=== PATIENT | male | born 1940 | race Caucasian/White ===

== ENCOUNTER → 2017-10-08 11:41 | Outpatient (CLI) | payer MEDICARE, SELFPAY ==
--- NOTE | 2017-10-08 | DI.CT.S_ITS ---
PROCEDURE: CT ABDOMEN WO/W CON INDICATIONS: 77-year-old male with posterior right hepatic lobe 1.6 cm lesion on recent abdominal ultrasound. History of thyroid and prostate carcinomas. TECHNIQUE: 4 phase scanning was performed. Non-contrast 5 mm axial sections acquired from the diaphragm to the iliac crests. Following the administration of intravenous contrast, 5 mm thick arterial-phase, portal venous-phase, and 5-minute delayed phase images were acquired through the liver. 5 mm thick coronal and sagittal reformats were performed. For radiation dose reduction, the following was used: automated exposure control, adjustment of mA and/or kV according to patient size. COMPARISON: [facility], US, ABDOMEN COMPLETE, 08/18/2017, 12:19. [facility], CT, CT CHEST WITH CONTRAST, 06/30/2017, 10:08. [facility], CT, CT NECK CHEST W CON, 10/17/2015, 12:54. [facility], CT, CT NECK CHEST W CON, 05/28/2015, 14:05. [facility], CT, ABDOMEN/PELVIS WITH CONTRAST, 10/06/2011, 18:19. [facility], CT, ABDOMEN/PELVIS WITH CONTRAST, 09/02/2008, 23:33. FINDINGS: Image quality: Excellent. Lung bases: Multiple variably sized bibasilar lung metastases are not significantly changed, measuring up to 1.1 cm in the posterolateral right lung base. Heart size is normal. Liver: Liver is normal in overall size. Precontrast images demonstrate no fatty infiltration. Lobulated 1.8 cm hypoenhancing lesion in the posterior right hepatic dome is again noted, demonstrating internal septations, and significantly increased in size from 8 mm on May 28, 2015 scan. No additional suspicious hepatic lesions identified. Other solid organs: Gallbladder is surgically absent. Biliary system is non dilated. Pancreas is normal in morphology. Spleen is normal in size and enhancement. No adrenal nodules. Diffuse bilateral adrenal thickening is unchanged, consistent with hyperplasia. Both kidneys demonstrate normal size and enhancement, without hydronephrosis or nephrolithiasis. Nodes and vessels: No retroperitoneal or mesenteric adenopathy by size criteria. Aorta and inferior vena cava are normal in size, with aortoiliac atherosclerosis. Bowel and peritoneum: Unenhanced bowel loops are normal in caliber. No free fluid or air. Bones: No suspicious bony lesions. No vertebral body compression fractures. There is grade one L4-L5 spondylolisthesis from facet joint degeneration. Miscellaneous: No ventral hernias. There is persistent asymmetric right hemidiaphragm elevation. IMPRESSION: 1. 1.8 cm hypovascular lesion in segment 7 of the posterior right hepatic dome corresponds with ultrasound finding, and has significantly enlarged since May 2015, consistent with metastasis. 2. Multiple pulmonary metastases are not significantly changed since June 2017. 3. Bilateral diffuse adrenal thickening as before, consistent with hyperplasia. Dictated by: Jose Daniel Bourgeois M.D. on 10/08/2017 at 12:36 Approved by: Jose Daniel Bourgeois M.D. on 10/08/2017 at 12:56
== END ==
PROVIDERS: Family Provider Family Medicine; PCP Family Medicine; Visit Provider Family Medicine
DX: K76.9 Liver disease, unspecified (principal); C78.00 Secondary malignant neoplasm of unspecified lung; Z85.850 Personal history of malignant neoplasm of thyroid; Z85.46 Personal history of malignant neoplasm of prostate
CPT/HCPCS: 74170; Q9967

== ENCOUNTER → 2017-11-09 12:41 | Outpatient (CLI) | payer MEDICARE, SELFPAY ==
--- NOTE | 2017-11-09 | DI.RAD.S_ITS ---
PROCEDURE: XR CHEST 2V INDICATIONS: ACUTE BRONCHITIS TECHNIQUE: 2 views of the chest were acquired. COMPARISON: [facility], CT, CT ABDOMEN WO/W CON, 10/08/2017, 11:45. [facility], CR, CHEST 1 VIEW, 09/05/2008, 10:43. [facility], CR, CHEST 1 VIEW, 09/04/2008, 16:23. [facility], CR, CHEST 1 VIEW, 09/02/2008, 23:15. FINDINGS: Surgical changes and devices: None. Lungs and pleura: No pleural effusions or pneumothorax. Lungs are again seen to be significantly abnormal containing multiple pulmonary nodules bilaterally, when compared to the scanogram from the prior recent CT scanning 10/08/17. The largest pulmonary nodule found and is located at the perihilar right lung, measuring approximately 2.8 cm oblique craniocaudad and 2.3 cm transverse. Mediastinum: Mediastinal contours are normal. Heart size is normal. Bones and chest wall: No suspicious bony abnormalities. Soft tissues appear unremarkable. IMPRESSION: Bilateral pulmonary nodules as discussed little if any changed from the comparison CT scan from 10/08/17. The findings are consistent with metastatic disease, appreciably worsened from 2008. Dictated by: Preston Tate M.D. on 11/09/2017 at 13:20 Approved by: Preston aTte M.D. on 11/09/2017 at 13:42
== END ==
PROVIDERS: Family Provider Family Medicine; PCP Family Medicine; Visit Provider Family Medicine
DX: J20.9 Acute bronchitis, unspecified (principal); R91.8 Other nonspecific abnormal finding of lung field
CPT/HCPCS: 71046

== ENCOUNTER → 2019-11-28 12:20 | Outpatient (CLI) | payer MEDICARE, SELFPAY ==
--- NOTE | 2019-11-28 | DI.RAD.S_ITS ---
PROCEDURE: XR CHEST 2V INDICATIONS: WHEEZING, shortness of breath TECHNIQUE: 2 views of the chest were acquired. COMPARISON: [facility], CT, CT CHEST WITH CONTRAST, 01/25/2019, 16:32. [facility], CR, XR CHEST 2V, 11/09/2017, 12:27. [facility], CR, CHEST 1 VIEW, 09/05/2008, 10:43. FINDINGS: Surgical changes and devices: None. Lungs and pleura: Lungs are abnormal with multiple lung masses present, bilaterally, and best seen on the right in apparent Tamara hilar distribution. Left-sided lung base and lateral lung nodules are present that appear little if any change from prior study but a new nodule appears to superimpose on the lower 3rd of the left hilum. Chronic elevation of the right hemidiaphragm. No pleural effusions or pneumothorax. Mediastinum: Mediastinal contours are normal. Heart size is normal. Bones and chest wall: No suspicious bony abnormalities. Soft tissues appear unremarkable. IMPRESSION: A small interval increase in size of right-sided lung masses has occurred, and a new nodule is seen within the area overlying the left hilum lower 3rd. The patient carries a history of thyroid carcinoma. Interval worsening of mass effect may explain the reported worsening wheezing and shortness of breath. Dictated by: Preston Tate M.D. on 11/28/2019 at 12:46 Approved by: Preston Tate M.D. on 11/28/2019 at 12:56
== END ==
PROVIDERS: Family Provider Family Medicine; PCP Family Medicine; Referring Provider Family Medicine; Visit Provider Family Medicine
DX: R06.2 Wheezing (principal); R06.02 Shortness of breath; R91.8 Other nonspecific abnormal finding of lung field; Z85.850 Personal history of malignant neoplasm of thyroid
CPT/HCPCS: 71046

== ENCOUNTER → 2020-03-27 15:36 | Outpatient (CLI) | payer MEDICARE, SELFPAY ==
--- NOTE | 2020-03-27 | DI.CT.S_ITS ---
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 For radiation dose reduction, the following was used: automated exposure control, adjustment of mA and/or kV according to patient size. COMPARISON: [facility], CT, HEAD WITHOUT CONTRAST, 11/28/2015, 11:21. [facility], CT, HEAD WITHOUT CONTRAST, 06/28/2007, 10:12. FINDINGS: Image quality: Excellent. CSF spaces: Basal cisterns are patent. No extra-axial fluid collections. The ventricles are symmetric in size and shape. Brain: No intracranial bleeds or masses. There is cerebral volume loss for age, with resultant ventricular and sulcal prominence. There are periventricular and deep white matter chronic small vessel ischemic changes. There is intracranial internal carotid artery atherosclerosis. Skull and face: Calvarium and visualized facial bones appear intact, without suspicious lesions. Sinuses: Visualized sinuses and mastoids are clear. IMPRESSION: Moderate microvascular atherosclerotic change in the deep white matter of each hemisphere as was previously the case on comparison head CT scanning. No acute disease is found, no mass or hemorrhage is identified. Dictated by: Preston Tate M.D. on 03/27/2020 at 16:28 Approved by: Preston Tate M.D. on 03/27/2020 at 16:28
== END ==
PROVIDERS: Family Provider Family Medicine; PCP Family Medicine; Referring Provider Internal Medicine; Visit Provider Internal Medicine
DX: F04 Amnestic disorder due to known physiological condition (principal)
CPT/HCPCS: 70450

== ENCOUNTER → 2021-04-10 12:17 | Outpatient (CLI) | payer MEDICARE, SELFPAY ==
--- NOTE | 2021-04-10 | DI.RAD.S_ITS ---
PROCEDURE: XR CHEST 2V INDICATIONS: Cough, unspecified TECHNIQUE: 2 views of the chest were acquired. COMPARISON: [facility], CT, CT CHEST WITH CONTRAST, 10/03/2020, 10:14. [facility], CR, XR CHEST 2V, 11/28/2019, 12:18. FINDINGS: Surgical changes and devices: Bilateral neck surgical clips. Lungs and pleura: Redemonstrated extensive bilateral pulmonary nodules/masses, compatible with metastatic disease. No pleural effusions or pneumothorax. Mediastinum: Mediastinal contours are normal. Heart size is normal. Bones and chest wall: No suspicious bony abnormalities. Persistent elevation of the right diaphragm. IMPRESSION: No significant interval change. Dictated by: Daniel Andino M.D. on 04/10/2021 at 12:32 Approved by: Daniel Andino M.D. on 04/10/2021 at 12:34
== END ==
PROVIDERS: Family Provider Family Medicine; PCP Family Medicine; Referring Provider Family Medicine; Visit Provider Family Medicine
DX: R05.9 Cough, unspecified (principal)
CPT/HCPCS: 71046

== ENCOUNTER 2021-06-17 10:32 | Emergency (ER) | payer MEDICARE, SELFPAY ==
[2021-06-17 10:43] VITALS: BP 134/76; PULSE 82; RESP 18; TEMP 36.7; O2SAT 99; BMI 15.5
[2021-06-17 11:04] LABS: COVID19 -Nasal RAPID Negative (Negative)
[2021-06-17 12:18] LABS: Amorphous Sediment Urine 2+; Bacteria Urine None Seen; Culture Indicated Urine Specimen Cultured; RBC Urine None Seen (0-5/HPF); Squamous Epithelial Cell Urine None Seen (0-5/HPF); WBC Urine 1-5/HPF (0-5/HPF)
[2021-06-17] MEDS: SODIUM CHLORIDE 0.9% 1,000 ML 1000 ML IV (12:53)
[2021-06-17 13:00] LABS: Add Manual Diff / Slide Review NO; Basophils Absolute Auto 100 /uL (0-100); Basophils Percent Auto 0.8 % (0-2); Eosinophils Absolute Auto 100 /uL (0-450); Eosinophils Percent Auto 0.6 % (2-4); Hemoglobin 12.6 g/dL (13.5-17.5); Lymphocytes Absolute Auto 800 /uL (1100-4500); Lymphocytes Percent Auto 7.9 % (25-40); Mean Corpuscular HGB Conc 33.3 % (30-36); Mean Corpuscular Hemoglobin 31.5 PG (26-34); Mean Corpuscular Volume 94.7 fL (80-100); Monocytes Absolute Auto 500 /uL (0-900); Monocytes Percent Auto 4.5 % (3-14); Neutrophils Absolute Auto 8900 /uL (1500-7000); Neutrophils Percent Auto 86.2 % (50-75); Platelet Count 272 X10^3/uL (150-400); Red Blood Cell Count 4.01 X10^6/uL (4.5-5.9); Red Cell Distribution Width 14.3 % (11.6-14.8); White Blood Cell Count 10.3 X10^3/uL (4.5-11.0)
[2021-06-17 13:06] LABS: Alanine Aminotransferase 18 IU/L (<50); Albumin Globulin Ratio 1.3 (1.0-2.8); Alkaline Phosphatase 64 U/L (38-126); Aspartate Aminotransferase 27 IU/L (17-59); Bilirubin Total 0.8 mg/dL (0.2-1.3); Blood Urea Nitrogen 24 mg/dL (9-20); Calcium 9.7 mg/dL (8.4-10.2); Carbon Dioxide 30 mmol/L (22-32); Chloride 106 mmol/L (98-107); Estimated Glomerular Filt Rate > 60.0 mL/min (>60); Globulin 3.1 g/dL (1.7-4.1); Glucose 92 mg/dL (80-110); HEMOLYSIS < 15 (0-50); Potassium 4.7 mmol/L (3.4-5.1); Sodium 143 mmol/L (137-145); Total Protein 7.1 g/dL (6.3-8.2)
--- NOTE | 2021-06-17 13:09 | PC.NURSE ---
Patient reports he had surgery 05/14 to enlarge his airway at , prior to surgery and after has had difficulty swallowing solids but can drink liquids. Progressively losing ability to swallow solids and as of today has lost the ability to swallow solids completely. Reports he can still drink liquids.
[2021-06-17 13:47] LABS: TSH w/ Reflex to FT4 < 0.02 uIU/mL (0.47-4.68)
--- NOTE | 2021-06-17 14:05 | ED_ITS ---
HPI - Recheck/Abnormal Lab/Rx General Chief Complaint: Recheck/Abnormal Lab/Rx Stated Complaint: weight loss, cant swallow post surgery Time Seen by Provider: 06/17/21 13:47 Source: patient and family Mode of arrival: Ambulatory History of Present Illness HPI narrative: Patient is an 81-year-old male with history of thyroid cancer with thyroidectomy presenting with difficulty swallowing. He apparently has had chronic ongoing dysphagia she has gotten progressively worse. Today he was with 1 of his daughters from does normally take care of him he had a choking episode came to the emergency department. He had a procedure at the [facility] at the end of April to cut part of his vocal cord to help him breathe. After that he did have a swallow evaluation. For multiple weeks now he has only been able to drink liquids and not solids. He was seen by ENT he has referral for speech and swallow therapy. He does not want a feeding tube at this time he has no chest pain or shortness of breath. I spoke with the daughter on the phone who normally takes care of him at this time, sounds like chronic ongoing problem. Patient is awake alert and oriented able to swallow secretions. Is drinking Ensure sometime controlled a little difficult to get down. His he has a swallow evaluation and review of [place]. Related Data Home Medications Medication Instructions Recorded Confirmed ASPIRIN (#ASPIR 81) 81 mg PO QDAY #0 10/06/11 nebivolol 5 mg tablet (Bystolic) 5 mg PO Q DAY #0 10/06/11 levothyroxine 150 mcg tablet 150 mcg OR Q DAY #0 11/28/15 (Synthroid) Previous Rx's Medication Instructions Recorded hydrocodone 5 mg-acetaminophen 325 1 - 2 tab PO Q6HP PRN #15 tab 11/28/15 mg tablet ([place]ubon) Allergies Allergy/AdvReac Type Severity Reaction Status Date / Time No Known Drug Allergies Allergy Verified 06/17/21 10:44 Review of Systems Review of Systems Narrative: GENERAL: Denies chills, fatigue, malaise, fever, sweats, travel HEENT: See HPI RESPIRATORY: Denies dyspnea, cough, wheezing, hemoptysis, sputum. CARDIOVASCULAR: Denies chest pain, palpitations, orthopnea, edema GASTROINTESTINAL: Denies nausea, vomiting, abdominal pain, diarrhea, constipation, melena. : Denies dysuria, frequency, incontinence, hematuria, urinary retention, flank pain. MUSCULOSKELETAL: Denies weakness, joint pain, or bony pain SKIN: No rash, no erythema, no pruritus NEUROLOGIC: Denies weakness, dizziness, headache, numbness, change in speech, confusion PSYCHIATRIC: No concerning psychosocial issues. 12 point review of systems is negative except for those stated above and HPI Patient History Medical History Thyroid cancer Social History Smoking Status: Former smoker Smoking Status: Former smoker alcohol intake frequency: 0-2 drinks per day Substance Use Type: does not use Exam Initial Vital Signs Initial Vital Signs: Vital Signs Temperature 98.1 F 06/17/21 10:43 Pulse Rate 82 06/17/21 10:43 Respiratory Rate 18 06/17/21 10:43 Blood Pressure 134/76 06/17/21 10:43 Pulse Oximetry 99 06/17/21 10:43 GENERAL: Cachectic elderly maleand in no acute distress. HEENT: Head atraumatic,EOMI, pupils reactive, face symmetric, hoarse voice CARDIOVASCULAR: Regular rate and rhythm without murmurs, rubs or gallops. RESPIRATORY: Breath sounds equal bilaterally, no wheezes rales or rhonchi. ABDOMEN: Soft, nontender. Normoactive bowel sounds all 4 quadrants. No guarding or rebound. EXTREMITIES: Normal range of motion, no clubbing or edema. Neurovascularly intact NEUROLOGICAL: Alert and oriented x4.Normal gait and speech. Moving all extremities SKIN: Warm, dry, no laceration, no petechiae, no rashes or lesions. Course Orders Ordered: ED Orders 06/17/21 10:41 COVID19 -Nasal swab/Pre-Proc Stat 06/17/21 11:20 Urine Culture Stat Urine Microscopic Stat 06/17/21 12:25 Complete Blood Count AUTO DIFF Stat Comprehensive Metabolic Panel Stat Free T4, Direct Thyroxine Stat TSH w/ Reflex to FT4 Stat Discontinued Medications Sodium Chloride (Normal Saline 0.9%) 1,000 mls @ 1,000 mls/hr IV BOLUS ONE Stop: 06/17/21 13:29 Last Infusion: 06/17/21 13:59 Dose: 0 mls/hr Documented by: Admin: 06/17/21 12:53 Dose: 1,000 mls/hr Documented by: YOAV Vital Signs Vital signs: Vital Signs - 8 hr 06/17/21 14:32 Pulse Rate 55 L Respiratory Rate 20 Blood Pressure 138/80 Pulse Oximetry 97 MDM - Recheck/Abnormal Lab/Rx Lab Data Result diagrams: 06/17/21 12:25 06/17/21 12:25 Labs: Lab Results 06/17/21 06/17/21 06/17/21 Range/Units 10:41 11:20 12:25 WBC 10.3 (4.5-11.0) X10^3/uL RBC 4.01 L (4.5-5.9) X10^6/uL Hgb 12.6 L (13.5-17.5) g/dL Hct 38.0 L (41-53) % MCV 94.7 (80-100) fL MCH 31.5 (26-34) PG MCHC 33.3 (30-36) % RDW 14.3 (11.6-14.8) % Plt Count 272 (150-400) X10^3/uL Neut % (Auto) 86.2 H (50-75) % Lymph % (Auto) 7.9 L (25-40) % [place] % (Auto) 4.5 (3-14) % Eos % (Auto) 0.6 L (2-4) % Baso % (Auto) 0.8 (0-2) % Neut # (Auto) 8900 H (7050-3462) /uL Lymph # (Auto) 800 L (5821-1248) /uL [place]uming # (Auto) 500 (0-900) /uL Eos # (Auto) 100 (0-450) /uL Baso # (Auto) 100 (0-100) /uL Sodium (137-145) mmol/L Potassium (3.4-5.1) mmol/L Chloride (98-107) mmol/L Carbon Dioxide (22-32) mmol/L BUN (9-20) mg/dL Creatinine (0.66-1.25) mg/dL Estimated GFR (>60) mL/min BUN/Creatinine Ratio (6-22) Glucose (80-110) mg/dL Calcium (8.4-10.2) mg/dL Total Bilirubin (0.2-1.3) mg/dL AST (17-59) IU/L ALT (<50) IU/L Alkaline Phosphatase (38-126) U/L Total Protein (6.3-8.2) g/dL Albumin (3.5-5.0) g/dL Globulin (1.7-4.1) g/dL Albumin/Globulin Ratio (1.0-2.8) TSH (0.47-4.68) uIU/mL Free T4 (0.78-2.19) ng/dL Urine RBC None seen (0-5/HPF) Urine WBC 1-5/hpf (0-5/HPF) Ur Squamous Epith Cells None seen (0-5/HPF) Amorphous Sediment 2+ Urine Bacteria None seen (None) Ur Culture Indicated? Specimen cultured SARS-CoV-2 (PCR) Negative (Negative) 06/17/21 06/17/21 Range/Units 12:25 12:25 WBC (4.5-11.0) X10^3/uL RBC (4.5-5.9) X10^6/uL Hgb (13.5-17.5) g/dL Hct (41-53) % MCV (80-100) fL MCH (26-34) PG MCHC (30-36) % RDW (11.6-14.8) % Plt Count (150-400) X10^3/uL Neut % (Auto) (50-75) % Lymph % (Auto) (25-40) % Cuming % (Auto) (3-14) % Eos % (Auto) (2-4) % Baso % (Auto) (0-2) % Neut # (Auto) (5844-2056) /uL Lymph # (Auto) (5026-7443) /uL [place]uming # (Auto) (0-900) /uL Eos # (Auto) (0-450) /uL Baso # (Auto) (0-100) /uL Sodium 143 (137-145) mmol/L Potassium 4.7 (3.4-5.1) mmol/L Chloride 106 (98-107) mmol/L Carbon Dioxide 30 (22-32) mmol/L BUN 24 H (9-20) mg/dL Creatinine 1.00 (0.66-1.25) mg/dL Estimated GFR > 60.0 (>60) mL/min BUN/Creatinine Ratio 24.0 H (6-22) Glucose 92 (80-110) mg/dL Calcium 9.7 (8.4-10.2) mg/dL Total Bilirubin 0.8 (0.2-1.3) mg/dL AST 27 (17-59) IU/L ALT 18 (<50) IU/L Alkaline Phosphatase 64 (38-126) U/L Total Protein 7.1 (6.3-8.2) g/dL Albumin 4.0 (3.5-5.0) g/dL Globulin 3.1 (1.7-4.1) g/dL Albumin/Globulin Ratio 1.3 (1.0-2.8) TSH < 0.02 L (0.47-4.68) uIU/mL Free T4 2.66 H (0.78-2.19) ng/dL Urine RBC (0-5/HPF) Urine WBC (0-5/HPF) Ur Squamous Epith Cells (0-5/HPF) Amorphous Sediment Urine Bacteria (None) Ur Culture Indicated? SARS-CoV-2 (PCR) (Negative) Urine Dip Bedside Urine Glucose Negative Bedside Urine Bilirubin - Negative Bedside Urine Ketone +/- 5 Urine Specific [place] 1.015 Bedside Urine Occult Blood - Negative Bedside Urine pH 7.0 Bedside Urine Protein + 30 Bedside Urine Urobilinogen - Negative Bedside Urine Nitrite - Negative Bedside Urine Leukocytes + 70 Esterase MDM Narrative Medical decision making narrative: Patient has chronic ongoing dysphagia problems. For sometime he has only been able to swallow liquids. He continues to be able to swallow liquids today it sounds though he had 1 episode of choking. He has a referral for swallow evaluation he has already had an upper GI series. At this time he is not dehydrated he overall appears well. There is no evidence of aspiration he has no cough or shortness of breath. At this time her command outpatient follow-up. Encouraged him to drink Ensure. He is quite adamant that he does not want PEG tube. Discharge Plan Departure Patient Disposition: Home Clinical Impression: Dysphagia Instructions: Upper Gastrointestinal Series Activity Restrictions/Additional Instructions: *You have been diagnosed with dysphagia *What to do: At this time you do need swallow therapy and speech therapy is at sounds as though you had a swallow evaluation are ready. I recommend continuing liquids only including 3-5 in sure his daily. Please call Dr. North is office in regards to swallow therapy and evaluation. *Continue to take medications as directed *Follow up with your primary care provider in 2-3 days or call [phone] *Return to ER if you should have cough difficulty breathing inability to swallow spit, or any new, worsening or concerning symptoms Prescriptions: No Action ASPIRIN (#ASPIR 81) 81 mg PO QDAY Qty: 0 0RF nebivolol [Bystolic] 5 MG tablet 5 mg PO Q DAY Qty: 0 0RF levothyroxine [Synthroid] 150 MCG tablet 150 mcg OR Q DAY Qty: 0 0RF hydrocodone-acetaminophen [[place]] 5 MG/325 MG tablet 1 - 2 tab PO Q6HP PRNQty: 15 0RF Referrals: Sean North MD [Physician] - Temo Aguilar MD [Primary Care Provider] -
[2021-06-17 14:29] LABS: Free T4, Direct Thyroxine 2.66 ng/dL (0.78-2.19)
[2021-06-17 14:32] VITALS: BP 138/80; PULSE 55; RESP 20; O2SAT 97
== END 2021-06-17 14:36 | disposition home or self-care (01) ==
PROVIDERS: Emergency Provider Emergency Medicine; Family Provider Family Medicine; PCP Family Medicine
DX: R13.10 Dysphagia, unspecified (principal); Z20.822 Contact with and (suspected) exposure to COVID-19
CPT/HCPCS: 36415; 80053; 81003; 81015; 84439; 84443; 85025; 87086; 87635; 99283; C9803

== ENCOUNTER 2021-07-29 17:37 | Inpatient (IN) | payer MEDICARE, SELFPAY ==
[2021-07-29] VITALS (10 sets, daily range): BP systolic 115–138; BP diastolic 50–72; PULSE 72–107; RESP 12–38; TEMP 36.5–37.5; O2SAT 84–97; BMI 12.9
--- NOTE | 2021-07-29 18:16 | DI.RAD.S_ITS ---
PROCEDURE: XR CHEST 1V INDICATIONS: dyspena TECHNIQUE: One view of the chest was acquired. COMPARISON: [facility], , XR CHEST 2V, 04/10/2021, 12:12. FINDINGS: Surgical changes and devices: Surgical clips noted in the left neck Lungs and pleura: Bilateral pulmonary nodules again noted. There is elevation the right hemidiaphragm and underlying hyperinflation present. Mediastinum: Mediastinal contours appear normal. Heart size is normal. Bones and chest wall: No suspicious bony lesions. Overlying soft tissues appear unremarkable. IMPRESSION: Stable chest x-ray. Bilateral pulmonary nodules. Approved by: Sachin Vieira M.D. on 07/29/2021 at 18:09
[2021-07-29 18:33] LABS: Add Manual Diff / Slide Review NO; Basophils Absolute Auto 100 /uL (0-100); Basophils Percent Auto 0.6 % (0-2); Eosinophils Absolute Auto 0 /uL (0-450); Hematocrit 40.5 % (41-53); Hemoglobin 13.2 g/dL (13.5-17.5); Lymphocytes Absolute Auto 400 /uL (1100-4500); Lymphocytes Percent Auto 1.9 % (25-40); Mean Corpuscular HGB Conc 32.7 % (30-36); Monocytes Absolute Auto 500 /uL (0-900); Monocytes Percent Auto 2.5 % (3-14); Neutrophils Absolute Auto 18700 /uL (1500-7000); Platelet Count 350 X10^3/uL (150-400); Red Blood Cell Count 4.26 X10^6/uL (4.5-5.9); Red Cell Distribution Width 15.4 % (11.6-14.8); White Blood Cell Count 19.7 X10^3/uL (4.5-11.0)
--- NOTE | 2021-07-29 18:39 | PC.NURSE ---
obi ortiz on . ice chips to patient
[2021-07-29 18:46] LABS: Alanine Aminotransferase 15 IU/L (<50); Albumin 4.4 g/dL (3.5-5.0); Albumin Globulin Ratio 1.3 (1.0-2.8); Alkaline Phosphatase 72 U/L (38-126); Aspartate Aminotransferase 25 IU/L (17-59); BUN Creatinine Ratio 35.2 (6-22); Bilirubin Total 1.2 mg/dL (0.2-1.3); Blood Urea Nitrogen 38 mg/dL (9-20); Calcium 9.8 mg/dL (8.4-10.2); Carbon Dioxide 26 mmol/L (22-32); Chloride 106 mmol/L (98-107); Estimated Glomerular Filt Rate > 60.0 mL/min (>60); Globulin 3.3 g/dL (1.7-4.1); Glucose 121 mg/dL (80-110); HEMOLYSIS < 15 (0-50); Lactate (Lactic Acid) 2.6 mmol/L (0.7-2.1); Potassium 4.3 mmol/L (3.4-5.1); Sodium 142 mmol/L (137-145); Total Protein 7.7 g/dL (6.3-8.2)
[2021-07-29 18:57] LABS: COVID19 -Nasal RAPID Negative (Negative)
[2021-07-29] MEDS: SODIUM CHLORIDE 0.9% 1,000 ML 1000 ML IV ×2 (18:58→22:29)
--- NOTE | 2021-07-29 19:59 | ED_ITS ---
HPI - General Adult General Chief complaint: Shortness of Breath/Dyspnea Stated complaint: LOSS OF WEIGHT STAGE 4 CANCER UNABLE TO GET ANYTHI Time Seen by Provider: 07/29/21 17:59 Source: patient Mode of arrival: Family Vehicle History of Present Illness HPI narrative: 81-year-old gentleman with a history of esophageal and throat cancer he has been told by physicians at the [facility] that they are no longer any additional treatment options for him. He is accompanied by 2 daughters and there are some psychosocial issues that have come up between the 2 daughters. Please see social Work notes for details of the psychosocial and home care concerns. He currently lives alone and a reportedly has a great niece taking ca re of him. For the last 6 days he has been unable to eat solid foods or drink any liquids. He complains that he has dry his obviously extraordinarily weak and cachectic. When asked if he had spoken with hospice yet he said that he had not and then his daughter indicated that they were out 2 weeks ago when he told them to go away. When asked about end of life type questions and whether he would address those it sounds like he did not remember any of those discussions and does not have a pulsed form and states that he does not want to . When I asked if you would prefer to at home or in the hospital he actually had no preference. He has had little urine or stool output and his daughters know when he does try to eat or drink it sounds like he is aspirating rather than any of it getting into his stomach. He does not describe any fevers. Related Data Home Medications Medication Instructions Recorded Confirmed levothyroxine 150 mcg tablet 150 mcg OR Q DAY #0 11/28/15 07/29/21 (Synthroid) levothyroxine 150 mcg tablet mcg 07/29/21 Allergies Allergy/AdvReac Type Severity Reaction Status Date / Time No Known Drug Allergies Allergy Verified 07/29/21 18:19 Review of Systems Review of Systems Narrative: Remainder of complete review of systems is otherwise unremarkable except for that included in the HPI. Patient History Medical History (Updated 07/29/21 @ 22:17 by Kayleigh Bueno MD) Aspiration pneumonia Dysphagia Esophageal cancer Thyroid cancer Family History (Updated 07/29/21 @ 22:18 by Kayleigh Bueno MD) Mother Natural with unknown cause Social History household members: family Smoking Status: Former smoker Smoking Status: Former smoker alcohol intake frequency: 0-2 drinks per day Substance Use Type: does not use Exam Initial Vital Signs Initial Vital Signs: Vital Signs Temperature 99.5 F 07/29/21 18:14 Pulse Rate 96 H 07/29/21 18:14 Respiratory Rate 12 07/29/21 18:14 Blood Pressure 138/72 07/29/21 18:14 Pulse Oximetry 84 L 07/29/21 18:14 General: Cachectic, pale, chronically ill-appearing, hoarse HEENT: dry mucous membranes, normal sclera with reactive pupils, Neck: No JVD, supple. No palpable nodules or masses Respiratory: Lungs with scattered wheeze, no rhonchi. Full and symmetrical air movement Cardiac: Regular rate and rhythm no murmurs no bruits Abdomen: Cachectic, nontender to palpation, no flank pain Skin: Pale, Warm and dry, no rashes Neurologic: Globally weak but Grossly neurologically intact with no obvious asymmetries or abnormalities Extremities: No trauma, well perfused Psych: Cooperative, forgetful, confused with intermittent episodes of improved insight Course Orders Ordered: ED Orders 07/29/21 18:10 COVID19 -Nasal swab/Pre-Proc Stat 07/29/21 18:13 EKG-12 Lead Stat 07/29/21 18:14 Consult to VAULT MANAGER - Skein Washer Stat 07/29/21 18:16 XR chest 1V Stat 07/29/21 18:20 Complete Blood Count AUTO DIFF Stat Comprehensive Metabolic Panel Stat Lactate (Lactic Acid) Stat 07/29/21 20:56 CT chest abd pel w con Stat 07/29/21 21:00 Ictotest Urine Stat Urinalysis and Microscopic Stat 07/29/21 21:13 Blood Culture Stat Enoxaparin Sodium (Enoxaparin 30 Mg/0.3 Ml Syringe) 30 mg SUBCUT DAILY ROMEOR Hydromorphone HCl (Hydromorphone 0.5 Mg Inj) 0.5 mg IV Q4H PRN PRN Reason: Breakthrough pain only (8-10) Sodium Chloride (Normal Saline 0.9%) 1,000 mls @ 150 mls/hr IV CONT ROMERO Last Admin: 07/30/21 00:32 Dose: Not Given Documented by: CATHY Sodium Chloride (Normal Saline 0.45%) 1,000 mls @ 150 mls/hr IV CONT [facility] Last Admin: 07/30/21 00:50 Dose: 150 mls/hr Documented by: CATHY Piperacillin Sod/Tazobactam (Sod 3.375 gm/ Sodium Chloride) 100 mls @ 25 mls/hr IV Q8H [facility] Last Admin: 07/30/21 01:22 Dose: 25 mls/hr Documented by: CATHY Morphine Sulfate (Morphine 2 Mg/Ml Inj) 2 mg IV Q4H PRN PRN Reason: Breakthrough pain only (8-10) Naloxone HCl (Naloxone 0.4 Mg/Ml Vial) 0.2 mg IV Q2MIN PRN PRN Reason: Opiate Reversal Ondansetron HCl (Ondansetron 4 Mg/2 Ml Inj) 4 mg IV Q8HR PRN PRN Reason: Nausea And Vomiting Discontinued Medications Sodium Chloride (Normal Saline 0.9%) 1,000 mls @ 1,000 mls/hr IV BOLUS ONE Stop: 07/29/21 19:55 Last Infusion: 07/29/21 20:04 Dose: 0 mls/hr Documented by: Admin: 07/29/21 18:58 Dose: 1,000 mls/hr Documented by: AUGUSTA Sodium Chloride (Normal Saline 0.9%) 1,000 mls @ 1,000 mls/hr IV BOLUS ONE Stop: 07/29/21 21:48 Last Infusion: 07/29/21 23:45 Dose: 0 mls/hr Documented by: Admin: 07/29/21 22:29 Dose: 1,000 mls/hr Documented by: AUGUSTA Piperacillin Sod/Tazobactam (Sod 4.5 gm/ Sodium Chloride) 100 mls @ 200 mls/hr IV NOW ONE Stop: 07/29/21 20:50 Last Infusion: 07/29/21 23:10 Dose: 0 mls/hr Documented by: Admin: 07/29/21 22:28 Dose: 200 mls/hr Documented by: AUGUSTA Vital Signs Vital signs: Vital Signs - 8 hr 07/29/21 18:30 07/29/21 19:00 07/29/21 19:30 Temperature Pulse Rate 96 H 97 H 98 H Respiratory Rate 29 H 25 H Blood Pressure 138/60 120/53 L Pulse Oximetry 94 97 94 07/29/21 19:36 07/29/21 19:38 07/29/21 20:00 Temperature 98.6 F Pulse Rate 96 H 90 Respiratory Rate 38 H 33 H Blood Pressure 115/57 L Pulse Oximetry 95 95 07/29/21 20:30 07/29/21 21:00 Temperature Pulse Rate 107 H 97 H Respiratory Rate 36 H Blood Pressure 123/70 121/63 Pulse Oximetry 90 L 93 Medical Decision Making Lab Data Result diagrams: 07/29/21 18:20 07/29/21 18:20 Labs: Lab Results 07/29/21 07/29/21 07/29/21 Range/Units 18:10 18:20 18:20 WBC 19.7 H (4.5-11.0) X10^3/uL RBC 4.26 L (4.5-5.9) X10^6/uL Hgb 13.2 L (13.5-17.5) g/dL Hct 40.5 L (41-53) % MCV 95.0 (80-100) fL MCH 31.0 (26-34) PG MCHC 32.7 (30-36) % RDW 15.4 H (11.6-14.8) % Plt Count 350 (150-400) X10^3/uL Neut % (Auto) 95.0 H (50-75) % Lymph % (Auto) 1.9 L (25-40) % [place] % (Auto) 2.5 L (3-14) % Eos % (Auto) 0.0 L (2-4) % Baso % (Auto) 0.6 (0-2) % Neut # (Auto) 00604 H (6209-1380) /uL Lymph # (Auto) 400 L (7137-0176) /uL [place] # (Auto) 500 (0-900) /uL Eos # (Auto) 0 (0-450) /uL Baso # (Auto) 100 (0-100) /uL Sodium 142 (137-145) mmol/L Potassium 4.3 (3.4-5.1) mmol/L Chloride 106 (98-107) mmol/L Carbon Dioxide 26 (22-32) mmol/L BUN 38 H (9-20) mg/dL Creatinine 1.08 (0.66-1.25) mg/dL Estimated GFR > 60.0 (>60) mL/min BUN/Creatinine Ratio 35.2 H (6-22) Glucose 121 H (80-110) mg/dL Lactate (0.7-2.1) mmol/L Calcium 9.8 (8.4-10.2) mg/dL Total Bilirubin 1.2 (0.2-1.3) mg/dL AST 25 (17-59) IU/L ALT 15 (<50) IU/L Alkaline Phosphatase 72 (38-126) U/L Total Protein 7.7 (6.3-8.2) g/dL Albumin 4.4 (3.5-5.0) g/dL Globulin 3.3 (1.7-4.1) g/dL Albumin/Globulin Ratio 1.3 (1.0-2.8) Urine Color Urine Appearance Urine pH (4.5-8.0) Ur Specific [place] (1.000-1.035) Urine Protein (Negative) Urine Glucose (UA) (Negative) g/dL Urine Ketones (NEGATIVE) Urine Occult Blood (Negative) Urine Nitrate (Negative) Urine Bilirubin (NEGATIVE) Ur Bilirubin Confirm (Negative) Urine Urobilinogen (0.2) E.U./dL Ur Leukocyte Esterase (NEGATIVE) Urine RBC (0-5/HPF) Urine WBC (0-5/HPF) Ur Squamous Epith Cells (0-5/HPF) Urine Bacteria (None) Urine Mucus (Negative) Ur Culture Indicated? Micro UA Comment SARS-CoV-2 (PCR) Negative (Negative) 07/29/21 07/29/21 07/29/21 Range/Units 18:20 18:20 18:20 WBC Cancelled (4.5-11.0) X10^3/uL RBC Cancelled (4.5-5.9) X10^6/uL Hgb Cancelled (13.5-17.5) g/dL Hct Cancelled (41-53) % MCV Cancelled (80-100) fL MCH Cancelled (26-34) PG MCHC Cancelled (30-36) % RDW Cancelled (11.6-14.8) % Plt Count Cancelled (150-400) X10^3/uL Neut % (Auto) Cancelled (50-75) % Lymph % (Auto) Cancelled (25-40) % [place] % (Auto) Cancelled (3-14) % Eos % (Auto) Cancelled (2-4) % Baso % (Auto) Cancelled (0-2) % Neut # (Auto) Cancelled (3298-7553) /uL Lymph # (Auto) Cancelled (9104-6481) /uL [place] # (Auto) Cancelled (0-900) /uL Eos # (Auto) Cancelled (0-450) /uL Baso # (Auto) Cancelled (0-100) /uL Sodium Cancelled (137-145) mmol/L Potassium Cancelled (3.4-5.1) mmol/L Chloride Cancelled (98-107) mmol/L Carbon Dioxide Cancelled (22-32) mmol/L BUN Cancelled (9-20) mg/dL Creatinine Cancelled (0.66-1.25) mg/dL Estimated GFR Cancelled (>60) mL/min BUN/Creatinine Ratio Cancelled (6-22) Glucose Cancelled (80-110) mg/dL Lactate 2.6 H (0.7-2.1) mmol/L Calcium Cancelled (8.4-10.2) mg/dL Total Bilirubin Cancelled (0.2-1.3) mg/dL AST Cancelled (17-59) IU/L ALT Cancelled (<50) IU/L Alkaline Phosphatase Cancelled (38-126) U/L Total Protein Cancelled (6.3-8.2) g/dL Albumin Cancelled (3.5-5.0) g/dL Globulin Cancelled (1.7-4.1) g/dL Albumin/Globulin Ratio Cancelled (1.0-2.8) Urine Color Urine Appearance Urine pH (4.5-8.0) Ur Specific [place] (1.000-1.035) Urine Protein (Negative) Urine Glucose (UA) (Negative) g/dL Urine Ketones (NEGATIVE) Urine Occult Blood (Negative) Urine Nitrate (Negative) Urine Bilirubin (NEGATIVE) Ur Bilirubin Confirm (Negative) Urine Urobilinogen (0.2) E.U./dL Ur Leukocyte Esterase (NEGATIVE) Urine RBC (0-5/HPF) Urine WBC (0-5/HPF) Ur Squamous Epith Cells (0-5/HPF) Urine Bacteria (None) Urine Mucus (Negative) Ur Culture Indicated? Micro UA Comment SARS-CoV-2 (PCR) (Negative) 07/29/21 07/29/21 Range/Units 20:43 21:00 WBC (4.5-11.0) X10^3/uL RBC (4.5-5.9) X10^6/uL Hgb (13.5-17.5) g/dL Hct (41-53) % MCV (80-100) fL MCH (26-34) PG MCHC (30-36) % RDW (11.6-14.8) % Plt Count (150-400) X10^3/uL Neut % (Auto) (50-75) % Lymph % (Auto) (25-40) % [place] % (Auto) (3-14) % Eos % (Auto) (2-4) % Baso % (Auto) (0-2) % Neut # (Auto) (6982-5530) /uL Lymph # (Auto) (1611-1372) /uL [place] # (Auto) (0-900) /uL Eos # (Auto) (0-450) /uL Baso # (Auto) (0-100) /uL Sodium (137-145) mmol/L Potassium (3.4-5.1) mmol/L Chloride (98-107) mmol/L Carbon Dioxide (22-32) mmol/L BUN (9-20) mg/dL Creatinine (0.66-1.25) mg/dL Estimated GFR (>60) mL/min BUN/Creatinine Ratio (6-22) Glucose (80-110) mg/dL Lactate 1.8 (0.7-2.1) mmol/L Calcium (8.4-10.2) mg/dL Total Bilirubin (0.2-1.3) mg/dL AST (17-59) IU/L ALT (<50) IU/L Alkaline Phosphatase (38-126) U/L Total Protein (6.3-8.2) g/dL Albumin (3.5-5.0) g/dL Globulin (1.7-4.1) g/dL Albumin/Globulin Ratio (1.0-2.8) Urine Color Yellow Urine Appearance Clear Urine pH 5.0 (4.5-8.0) Ur Specific [place] >=1.030 H (1.000-1.035) Urine Protein 1+ H (Negative) Urine Glucose (UA) Trace H (Negative) g/dL Urine Ketones 1+ H (NEGATIVE) Urine Occult Blood Trace-intact (Negative) Urine Nitrate Negative (Negative) Urine Bilirubin 1+ H (NEGATIVE) Ur Bilirubin Confirm Negative (Negative) Urine Urobilinogen 0.2 (0.2) E.U./dL Ur Leukocyte Esterase Negative (NEGATIVE) Urine RBC 5-10/hpf H (0-5/HPF) Urine WBC 1-5/hpf (0-5/HPF) Ur Squamous Epith Cells 0-1 /hpf (0-5/HPF) Urine Bacteria Occasional (0-1) (None) Urine Mucus 1+ H (Negative) Ur Culture Indicated? Cult not indicated Micro UA Comment Few oval fat bodies SARS-CoV-2 (PCR) (Negative) Point of Care Testing Glucose POC 100 Point of care testing: Point of Care Testing Glucose POC 100 Imaging Data Chest x-ray: Radiologist's Impression: FINDINGS:? ? Surgical changes and devices:? Surgical clips noted in the left neck ? Lungs and pleura:? Bilateral pulmonary nodules again noted.? There is elevation the right hemidiaphragm and underlying hyperinflation present. ? Mediastinum:? Mediastinal contours appear normal.? Heart size is normal.? ? Bones and chest wall:? No suspicious bony lesions.? Overlying soft tissues appear unremarkable.? ? IMPRESSION:? Stable chest x-ray.? Bilateral pulmonary nodules. ? ? ? Approved by: Sachin Vieira M.D. on 07/29/2021 at 18:09? ECG Data Interpretation: Rate of 100 Sinus rhythm with frequent PVCs, nonspecific ST T wave abnormalities more notably laterally MDM Narrative Medical decision making narrative: 81-year-old gentleman with esophageal cancer. Has been followed at the [facility] and was told that there were no other treatments or options for him at this point. He is having episodes of confusion states that he can not eat or drink and has not done so for the last 6 days however his renal function suggests otherwise. White count is elevated and with his reports of coughing and aspiration I am concerned that he is developing an aspiration pneumonia in the setting of significant dehydration. His chest x-ray is unremarkable. We are still waiting for urine and the a 2nd blood culture prior to starting Zosyn to cover both pulmonary and bladder sources. Did have a long discussion with both the patient and his 2 daughters regarding treatment options. He would want to be DNR however but he does want everything done up to that point including antibiotics, hospitalization fluid and feeding tube as needed There is significant psychosocial concerns regarding discharge home and appropriate care with 1 daughter concerned that the other daughter had him changes will this weekend despite the fact that he is having only intermittent episodes of cognitive lucidity. Care is reviewed with the hospitalist. After discussion we decided to proceed with CT scan of the chest abdomen pelvis to see how extensive the esophageal tumor is to see which study is going to be most appropriate to further evaluate his complete inability to swallow. All of these findings were reviewed with the patient and his daughters all over amenable. He is safe for transfer to the floor Discharge Plan Departure Patient Disposition: Admitted As Inpatient Clinical Impression: Esophageal cancer, Dysphagia, Aspiration pneumonia Admit Date/Time: 07/29/21 21:21 Admit Provider: Kayleigh Bueno
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
[2021-07-29 20:28] LABS: Reflexed Lactate in 2 Hours Y
--- NOTE | 2021-07-29 20:56 | DI.CT.S_ITS ---
PROCEDURE: CT CHEST ABD PEL W CON INDICATIONS: unable to swallow even liquids. known esophageal CA. TECHNIQUE: After the administration of oral and intravenous contrast, axial sections acquired from the supraclavicular neck to the pubic symphysis. Coronal and sagittal reformats were performed. For radiation dose reduction, the following was used: automated exposure control, adjustment of mA and/or kV according to patient size. COMPARISON:[facility], CT, CT CHEST WITH CONTRAST, 10/03/2020, 10:14. CT, CT ABDOMEN WO/W CON, 10/08/2017, 11:45. [facility], CT, CT SOFT TISSUE NECK WITH CONTRAST, 04/11/2021, 18:08. [facility], CT, CT ANGIO CHEST PE, 04/11/2021, 18:08. FINDINGS: Image quality: Excellent. CHEST: Lower Neck: No enlarged lymph nodes. Thyroid: Enlarged left thyroid lobe mass with mild narrowing of the trachea, unchanged. Axillae: No enlarged lymph nodes. Chest Wall: Unremarkable. Lungs and Airways: There are multiple bilateral pulmonary and perihilar focal nodules as well as focal masses and consolidative opacities. Overall lesions are appear a mix, with several areas appearing stable while others appear worse and others improved. The consolidative opacity within the right base has become progressive compared to a cluster of nodules on prior exam. In addition, the left inferior perihilar mass is increased in size measuring 3.1 x 2.4 cm compared to 1.4 x 1.8 cm. Multiple nodules within the left lower lobe appear slightly less numerous when compared to prior exam. Right-sided perihilar masses are relatively stable. Heart: Heart size is normal. No pericardial effusion. Thoracic Vessels: The aorta and pulmonary arteries demonstrate normal size. Mediastinum and Lesly: No enlarged lymph nodes. Esophagus: No wall thickening. No hiatal hernia. ABDOMEN: Liver: Ill-defined medial right hepatic lobe lesion is stable. In addition, there is ill-defined low-attenuation within the medial right hepatic lobe on series 2, image 68 measuring approximately 12 mm compared to 9 mm. Gallbladder: Gallbladder is not visualized Biliary ducts: Unremarkable. Pancreas: Unremarkable. Spleen: Unremarkable. Adrenal Glands: Unremarkable. Kidneys and Ureters: Unremarkable. Stomach and Bowel: Stomach, small bowel loops, and colon are unremarkable. Prominent colonic stool is present with diverticula. No inflammatory change. Peritoneum: No abnormal intraperitoneal fluid. No free air. Ventral Wall: No hernia. Abdominal Nodes: No retroperitoneal or mesenteric adenopathy by size criteria. Vessels: Aorta is unremarkable. There is heterogeneous appearance the lumen of the inferior vena cava at the level of the liver. Inferior to the liver, there is no discernible contrast within the inferior vena cava. PELVIS: Pelvic Organs: Prostate is markedly enlarged. Bladder: Unremarkable. Pelvic Nodes: No enlarged lymph nodes. Miscellaneous: No inguinal hernias are seen. Bones: Unremarkable. IMPRESSION: 1. Multiple bilateral pulmonary masses as described above with areas interval progression, regression and stability. 2. Ill-defined hepatic lesions, demonstrating stability as well as focus of interval progression. 3. Heterogeneous appearance of contrast opacification within the inferior vena cava to the level of the liver. Inferiorly, appearance raises question of IVC occlusion. 4. Diverticulosis. Dictated by: Jaqueline Varner M.D. on 07/29/2021 at 21:48 Approved by: Jaqueline Varner M.D. on 07/29/2021 at 22:01
[2021-07-29 21:06] LABS: Lactate 2HR (Lactic Acid Rflx) 1.8 mmol/L (0.7-2.1)
[2021-07-29 21:15] LABS: Appearance Urine UA CLEAR; Bilirubin Urine UA 1+ (NEGATIVE); Color Urine UA YELLOW; Glucose Urine UA TRACE g/dL (Negative); Ketones Urine UA 1+ (NEGATIVE); Leukocyte Esterase Urine UA NEGATIVE (NEGATIVE); Nitrite Urine UA NEGATIVE (Negative); Occult Blood Urine UA TRACE-INTACT (Negative); Protein Urine UA 1+ (Negative); Specific Gravity Urine UA >=1.030 (1.000-1.035); Urobilinogen Urine UA 0.2 E.U./dL (0.2)
[2021-07-29 21:20] LABS: Ictotest Urine Negative (Negative)
[2021-07-29 21:23] LABS: Bacteria Urine Occasional (0-1); Culture Indicated Urine Cult Not Indicated; Mucus Urine 1+ (Negative); RBC Urine 5-10/HPF (0-5/HPF); Squamous Epithelial Cell Urine 0-1 /HPF (0-5/HPF); Urine Comments FEW OVAL FAT BODIES; WBC Urine 1-5/HPF (0-5/HPF)
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
[2021-07-29] MEDS: PIPERACILLIN/TAZO 4.5 GM in SODIUM CHLORIDE 0.9% 100 ML 200 ML IV (22:28)
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
[2021-07-30] MEDS: SODIUM CHLORIDE 0.45% 1,000 ML 150 ML IV (00:50)
[2021-07-30] MEDS: PIPERACILLIN/TAZO 3.375 GM in SODIUM CHLORIDE 0.9% 100 ML 25 ML IV ×2 (01:22→12:26)
[2021-07-30 01:25] VITALS: BP 130/68; PULSE 78; RESP 18; TEMP 36.4; O2SAT 95
[2021-07-30 04:36] VITALS: BP 114/63; PULSE 75; RESP 18; TEMP 36.8; O2SAT 94
[2021-07-30 05:33] LABS: Add Manual Diff / Slide Review NO; Basophils Absolute Auto 0 /uL (0-100); Basophils Percent Auto 0.3 % (0-2); Eosinophils Absolute Auto 0 /uL (0-450); Eosinophils Percent Auto 0.2 % (2-4); Hematocrit 31.7 % (41-53); Hemoglobin 10.6 g/dL (13.5-17.5); Lymphocytes Absolute Auto 800 /uL (1100-4500); Lymphocytes Percent Auto 6.5 % (25-40); Mean Corpuscular HGB Conc 33.4 % (30-36); Mean Corpuscular Hemoglobin 31.7 PG (26-34); Monocytes Absolute Auto 400 /uL (0-900); Monocytes Percent Auto 3.3 % (3-14); Neutrophils Absolute Auto 10400 /uL (1500-7000); Neutrophils Percent Auto 89.7 % (50-75); Platelet Count 271 X10^3/uL (150-400); Red Blood Cell Count 3.34 X10^6/uL (4.5-5.9); Red Cell Distribution Width 15.5 % (11.6-14.8); White Blood Cell Count 11.6 X10^3/uL (4.5-11.0)
[2021-07-30 06:17] LABS: Blood Urea Nitrogen 32 mg/dL (9-20); Calcium 8.2 mg/dL (8.4-10.2); Carbon Dioxide 24 mmol/L (22-32); Chloride 111 mmol/L (98-107); Estimated Glomerular Filt Rate > 60.0 mL/min (>60); Glucose 154 mg/dL (80-110); HEMOLYSIS < 15 (0-50); Potassium 3.5 mmol/L (3.4-5.1); Sodium 140 mmol/L (137-145)
[2021-07-30 08:10] VITALS: BP 114/59; PULSE 65; RESP 19; TEMP 36.2; O2SAT 98
[2021-07-30 10:00] VITALS: O2SAT 95
[2021-07-30] MEDS: ENOXAPARIN 30 MG/0.3 ML SYRINGE SUBCUT (10:04)
[2021-07-30] MEDS: POTASSIUM CHLORIDE IN WATER 10 MEQ/100 ML PIGGYBACK 100 MEQ IV ×2 (10:05→11:18)
[2021-07-30] MEDS: SODIUM CHLORIDE 0.9% 1,000 ML 150 ML IV (10:38)
--- NOTE | 2021-07-30 10:55 | OT.IP.EVAL ---
Current Diagnoses Pneumonitis due to inhalation of food and vomit (07/29/21) Dysphagia, unspecified (07/29/21) Past Medical History (Last Updated 07/29/21 @ 22:17 by Kayleigh Bueno MD) Aspiration pneumonia Dysphagia Esophageal cancer Thyroid cancer Occupational Therapy Inpatient Evaluation/Re-Eval M1 PT/OT-IP Prior Functional Status Start: 07/30/21 11:15 Freq: NEEDED Status: Active Protocol: Document 07/30/21 11:15 CGR (Rec: 07/30/21 11:31 CGR [id number]) Medical Review Prior Functional Status Medical History Reviewed Yes Communication Pt is [place] but able to effectively communicate Mobility and Gait Pt appears to have been IND without AD prior to the last few weeks. Pt is not a reliable historian and daughter present is visiting from out of town. Activities of Daily Living and IADL's Pt appears to have been IND with ADLs prior to the last few weeks. Pt is not a reliable historian and daughter present is visiting from out of town. Prior Functional Level (Other details) Pt's granddaughter lives in his home with him and the ex son in law lives in a trailer on the property. Pt's daughter Crystal lives near by and pt has daughter Tabitha who is here visiting now that lives in [place]. Social History Household Members family Living Arrangements House Number of Floors (Floors) Two Floors Number of Stairs To Enter/Railing? 6 steps to enter without rail. Pt can stay on the secret code expert (which is the upper floor) Home Environment Standard Height Toilet,Tub/ Shower Home Equipment Straight Cane Employment Status Retired Additional Social History Comment Pt appears confused about if he is still working or not. 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 M2 OT-IP Current Condition Start: 07/30/21 11:15 Freq: Status: Active Protocol: Document 07/30/21 11:15 CGR (Rec: 07/30/21 11:31 CGR [id number]) Occupational Therapy Current Condition Current Condition Evaluation Date 07/30/21 Treatment Diagnosis esophageal CA, severe malnutrition Diagnosis Onset Date 07/29/21 M3 OT- IP Subjective and Pain Start: 07/30/21 11:15 Freq: Status: Active Protocol: Document 07/30/21 11:15 CGR (Rec: 07/30/21 11:31 CGR [id number]) OT- Subjective Occupational Therapy Visit Type Type Initial Evaluation Visit Start Time 10:02 Visit Stop Time 10:55 Total Visit Minutes 53 Notes Pt's daughter Tabitha present for about half of the session. Occupational Therapy Visit Comments Patient Comments I need to poop OT Pain Assessment Pain When Pain Assessed At Rest Pain Present Pain Present Denied Pain M4 OT- IP ADL's Start: 07/30/21 11:15 Freq: Status: Active Protocol: Document 07/30/21 11:15 CGR (Rec: 07/30/21 11:31 CGR [id number]) OT LSD-Ymym-Ofbwtmb General Evaluation Self-Feeding Ability Independent Areas Needing Assistance Drinking From Cup/Glass Comments OT Self-Feeding Comments Pt able to drink from cup with some coughing OT ADL-Grooming Comments OT Grooming Comments not peformed OT ADL-Oral Care Comments Oral Care Comments not performed OT ADL-Dressing General Eval Lower Body Dressing Ability Minimal Assistance Areas Needing Assistance Underpants/Brief Comments OT Dressing Comments Pt was able to don clean brief with min a for threading RLE OT ADL-Toileting General Evaluation Toileting Ability Standby Assistance Areas Needing Assistance Manage Clothing,Perform Perineal Hygiene Comments OT Toileting Comments Pt had large BM seated on BSC (used BSC d/t O2 cord not long enough to get to toilet) and was able to perform back pericare with set up of items. OT ADL-Bathing Comments OT Bathing Comments not performed M5 OT- IP IADL's Start: 07/30/21 11:15 Freq: Status: Active Protocol: Document 07/30/21 11:15 CGR (Rec: 07/30/21 11:31 CGR [id number]) OT-Instrumental Activities of Daily Living Deficits IADL Deficits Identified Deficits Home Safety Awareness Awareness of Need for Assistance at Home Decreased Awareness Ability to Problem Solve Emergency Unable to Problem Solve Situations Medication Management Medication Management Comments Concerns for pt's ability to perform safely Money Management Money Management Comments Concerns for pt's ability to perform safely Meal Preparation Meal Preparation Comments Concerns for pt's ability to perform safely Skid Worker Skid Worker Comments Concerns for pt's ability to perform safely Driving Driving Comments 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 M6 OT- IP Functional Cognition Start: 07/30/21 11:15 Freq: Status: Active Protocol: Document 07/30/21 11:15 CGR (Rec: 07/30/21 11:31 CGR [id number]) Cognitive Factors Limiting Selfcare Function Cognitive Ability Level of Alertness Alert,Confusional State Patient Orientation Name,Month,Place,Situation Attention Span Ability Capable of Focused Attention, Capable of Sustained Attention Ability to Follow Commands Able to Follow One Step Commands with Increased Time, Able to Follow One Step Commands with Repetition Cognitive Tests [facility] Pt participated in the [facility] with a score of 12/30. He did not know the day of the week or the year, unable to perform any math, remember any of the 5 objects, perform 4 number series reversal, juan the clock time, and answered only 2 of the 4 listening comprehension questions. Cognitive Comments Cognitive Assessment Comments A score of 12/30 is well into the dementia category for the [facility] assessment. OT- Vision and Hearing OT- Hearing Assessment OT- Hearing Assessment Hearing Impaired OT- Vision Assessment Visual Attentiveness WFL Occular Pursuits WFL Visual Convergence WFL Vision Assessment Comments Pt wears bifocals M7 OT- IP Mobility and Balance Start: 07/30/21 11:15 Freq: Status: Active Protocol: Document 07/30/21 11:15 CGR (Rec: 07/30/21 11:31 CGR [id number]) OT- Bed Mobility Assessment Supine to Sit Supine to Sit Assist Minimal Assistance Scooting Scooting to Edge of Bed Minimal Assistance OT-Transfer Assessment Sit to and From Stand Sit to and from Stand Contact Guard Assistance, Minimal Assistance Transfers Transfer Ability Contact Guard Assistance, Minimal Assistance Technique Transfer Destination Bed,Bedside Commode,Chair Transfer Technique Stand Step Pivot Devices Transfer Assistive Devices Gait Belt,Front Wheeled Walker Comments Mobility Comments Minimal mobility on this date d/t need for BM and cog assessment OT- Balance Assessment Sitting Balance and Reactions Static Sitting Balance Ability Normal Dynamic Sitting Balance Ability Good M8 OT- IP Objective Assessments Start: 07/30/21 11:15 Freq: Status: Active Protocol: Document 07/30/21 11:15 CGR (Rec: 07/30/21 11:31 CGR [id number]) OT Gross Range of Motion Upper Extremity Range of Motion Assessment Within Functional Limits OT Strength Comments Strength Comments grossly 4-/5 OT- Coordination Assessment Upper Extremity Finger to Nose Test Within Functional Limits Finger Tapping Test Within Functional Limits OT-Muscle Tone Assessment Muscle Tone WNL Yes OT Sensation Assessment Edema Edema Absent M9 OT- IP Assessment and Plan Start: 07/30/21 11:15 Freq: Status: Active Protocol: Document 07/30/21 11:15 CGR (Rec: 07/30/21 11:31 CGR [id number]) OT Summary Assessment and Plan Potential Rehabilitation Potential Fair Analytic Complexity at Evaluation High Summary OT Impairments Strength,Balance,Functional Cognition,Functional Mobility, Grooming,Dressing,Toileting, Bathing,Toilet Transfers, Shower Transfers,Activity Tolerance Progress Towards Goals Slow Progress due to Medical Issues,Slow Progress due to Cognition Assessment Summary Pt presents as a high complexity evaluation s/p admit for severe malnutrition. Pt has a dx of esophageal CA and is unable to eat solid food. Pt is very thin and weak with significant memory deficits noted with a SLUMS score of 12/30. Pt is most likely appropriate for home with hospice. Goals Grooming Goal Independent Dressing Goal Independent Toileting Goal Independent Bathing Goal Independent Toilet Transfer Goal Independent Shower Transfer Goal Independent Days to Meet Goals 15 Frequency of Treatment Frequency Of Treatment Once a Day Treatment Plan OT Treatment Plan ADL Training,Functional Cognition Training,Functional Mobility,Patient/Family Education,Discharge Planning Other Treatment Recommendations and Next Adls at sink or shower if able Treatment Focus . Discharge Recommendations OT Discharge Recommendations Home vs SNF Transportation Needs at Discharge Private Vehicle
--- NOTE | 2021-07-30 11:08 | PT.IIE ---
Current Diagnoses Pneumonitis due to inhalation of food and vomit (07/29/21) Dysphagia, unspecified (07/29/21) Medical History (Last Updated 07/29/21 @ 22:17 by Kayleigh Bueno MD) Aspiration pneumonia Dysphagia Esophageal cancer Thyroid cancer Physical Therapy Inpatient Evaluation/Re-Eval M1 PT/OT-IP Prior Functional Status Start: 07/30/21 12:31 Freq: NEEDED Status: Active Protocol: Document 07/30/21 11:08 AB (Rec: 07/30/21 12:45 AB [id number]) Medical Review Prior Functional Status Medical History Reviewed Yes Communication able to make needs known; KAKE and needs repetions with questions and instructions; has confusion Mobility and Gait pt stated that he is modified indepedent with all mobilities and ambulation without AD Activities of Daily Living and IADL's pt stated that he is able to take care of himself but if he needs help, his grand daughter lives with him and assists Prior Functional Level (Other details) per OT note: Pt's granddaughter lives in his home with him and the ex son in law lives in a trailer on the property. Pt's daughter Crystal lives near by and pt has daughter Tabitha who is here visiting now that lives in [place]. Social History Household Members family Living Arrangements House Number of Floors (Floors) Two Floors Number of Stairs To Enter/Railing? pt stays on main level of the house 6 steps to enter without rails Home Environment Standard Height Toilet,Tub/ Shower Home Equipment Hand Held Shower Additional Social History Comment pt lives with his grand daughter. 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 PT-IP Current Condition Start: 07/30/21 12:31 Freq: NEEDED Status: Active Protocol: Document 07/30/21 11:08 AB (Rec: 07/30/21 12:45 AB [id number]) Physical Therapy Current Condition Current Condition Evaluation Date 07/30/21 Treatment Diagnosis esophageal CA; generalized weakness Onset Date 07/29/21 M3 PT-IP Subjective Start: 07/30/21 12:31 Freq: NEEDED Status: Active Protocol: Document 07/30/21 11:08 AB (Rec: 07/30/21 12:45 AB [id number]) Subjective Physical Therapy Visit Type Type Initial Evaluation Visit Start Time 11:08 Visit Stop Time 11:38 Total Visit Minutes 38 Number of TEST ENGINEERING INTERN Visits 0 Physical Therapy Visit Comments Patient Comments agreeable to do PT Therapy Pain Assessment Pain Present Pain Present Denied Pain M4 PT-IP Mobility and Gait Start: 07/30/21 12:31 Freq: NEEDED Status: Active Protocol: Document 07/30/21 11:08 AB (Rec: 07/30/21 12:45 AB [email or web address]) PT-Bed Mobility Assessment Supine to Sit Supine to Sit Standby Assistance Sit to Supine Sit to Supine Standby Assistance PT-Transfer Assessment Sit to and From Stand Sit to and from Stand Minimal Assistance,1 Person Assistance,Use of Upper Extremities Equipment Transfer Assistive Device Gait Belt,Front Wheeled Walker Orthotic/Prosthetic Devices or Brace: No Transfers Transfer Destination Chair Transfer Technique ambulated Transfer Ability Level of Assist Minimal Assistance,1 Person Assistance,Use of Upper Extremities Comments Mobility Comments pt sitting on chair and agreed to do PT. pt is KAKE and with confusion requiring cues with all tasks. O2 at rest with O2 96% completed sit to stand min A. min A for standing balance using FWW with initial posterior trunk lean and cues for posture and use of FWW. pt ambulated ~ 12 ft using FWW min A and sat on EOB. O2 checked: 76% with O2 on. cued for deep breathing and increased to ~ 90% in ~ 1 min. pt demonstrated sit <>supine SBA. completed sit to stand from EOB min A and step transfer to chair min A and cues using FWW. positioned pt on chair. call light and table placed within reach. Gait Assessment Gait Gait Assistance Required: Minimum Assistance Distance (Feet) 12 Able to Maintain Weight Bearing Status Yes During Gait Assistive Devices Assistive Device Gait Belt,Front Wheeled Walker Orthotic/Prosthetic Devices or Brace: No Gait Deviations General Gait Pattern Decreased Stride Length, Decreased Feet Clearance, Flexed Trunk,Step-to Gait Factors Limiting Gait Function Factors Limiting Gait Function Decreased Activity Tolerance, Decreased Strength,Difficulty Following Directions,Poor Balance,Poor Safety Awareness, Respiratory Distress PT-Balance Assessment Sitting Balance and Reactions Static Sitting Balance Ability Good Dynamic Sitting Balance Ability Good Standing Balance and Reactions Static Standing Balance Ability Fair Dynamic Standing Balance Ability Fair Device Used FWW M5 PT-IP Objective Assessments Start: 07/30/21 12:31 Freq: NEEDED Status: Active Protocol: Document 07/30/21 11:08 AB (Rec: 07/30/21 12:45 AB [email or web address]) Orientation Orientation/Cognition Level of Alertness Confusional State Orientation Name,Place,Situation Safety Awareness Decreased Safety Awareness Memory Description Short Term Impaired Gross Range of Motion Lower Extremity ROM Assessment Within Functional Limits Strength Lower Extremity Strength Hip 3+/5 Knee 4-/5 Sensation Assessment Sensation Gross Sensation WNL Muscle Tone Muscle Tone WNL Yes M6 PT-IP Treatment Start: 07/30/21 12:31 Freq: NEEDED Status: Active Protocol: Document 07/30/21 11:08 AB (Rec: 07/30/21 12:45 AB [email or web address]) Physical Therapy Treatment Education Education Provided Safety M7 PT-IP Assessment and Plan Start: 07/30/21 12:31 Freq: NEEDED Status: Active Protocol: Document 07/30/21 11:08 AB (Rec: 07/30/21 12:45 AB [email or web address]) PT Summary Assessment and Plan Potential Rehabilitation Potential Fair Status of Condition at Evaluation Evolving Summary Impairments ROM,Strength,Balance, Coordination,Cognition,Bed Mobility,Transfers,Gait, Activity Tolerance Assessment Summary pt requiring min A and cues with mobility using FWW but has decrease activity tolerance with O2 sat decreased to 76% with 12 ft of ambulation using fWW. pt with cognitive issue and is KAKE requiring cues for all tasks for safety. Pt will require 24/7 assist to safely go home and at this time may require SNF rehab to improve overall strength and function. will continue to assess progress. pt with dx of esophageal CA affecting food intake and also affecting activity tolerance and progress. Goals Bed Mobility Goal Standby Assistance Transfer Goal Standby Assistance,Front Wheeled Walker Gait Goal Standby Assistance,Front Wheel Walker Gait Distance 100 Other Goals up/down 6 steps SPC/without AD /CABLE MOCK UP ASSEMBLER min A Days to Meet Goals 10 Frequency of Treatment Frequency Of Treatment Once a Day Treatment Plan Physical Therapy Treatment Plan Bed Mobility Training,Transfer Training,Gait Training, Therapeutic Exercise,Balance Retraining,Discharge Planning, Hot or Cold Pack,Neuromuscular Re-ed,Coordination Retraining Precautions Other Precautions falls, O2 sat Recommendations To Nursing Amount of Assist Needed 1 Person Assist Discharge Recommendations PT Discharge Recommendations SNF Rehab Equipment Needed for Home Before FWW Discharge Transportation Needs at Discharge Wheelchair/Cabulance
[2021-07-30 12:59] VITALS: BP 102/57; PULSE 65; RESP 19; TEMP 36.6; O2SAT 98
--- NOTE | 2021-07-30 13:53 | ST.OPTN ---
Addendum entered and electronically signed by Werner Marquez 07/30/21 14:14: note: Based on observations below it is this DIGITAL DEVELOPER's recommendation to be discharged to longterm care or SNF facility with Hospice Original Note: Visit Care Team Role Provider Type Temo Aguilar MD Family Provider Physician Primary Care Provider Address: [address] [facility], [address], [place], [address] Charleen Fish MD Emergency Provider Physician Referring Provider Address: [address] [place] [address], [facility] Kayleigh Bueno MD Admit Provider Physician Attending Provider Address: [address] [place] [address], [facility] Pt requested MBS today. Attempted to schedule. Review of pt's chart indicated that the pt has bilateral VF paralysis, dyspnea/stridor, dysphonia, among others. Pt has a complicated medical history. Currently the pt was admitted to for esophageal cancer, chronic dysphagia, inability to eat, vomiting, likely aspiration pneumonia with acute severe protein calorie malnutrition, weight loss. Due to the BILATERAL VOCAL FOLD PARALYSIS, THE PT IS UNABLE TO PROTECT HIS AIRWAY from aspiration of liquids, solids and his secretions. Order for MBSS is cancelled as pt is inappropriate for the procedure. Discussed the risks of the procedure. ST will discharge from services. .
--- NOTE | 2021-07-30 14:48 | CM.DPNOTE ---
Addendum entered by Carmen Chapman 07/30/21 14:57: Faxed referral packet to [facility] per Luz, and received fax conf. Carmen Chapman CM Assist. Original Note: Faxed referral packet to [facility] per [facility], and received fax conf. Carmen Chapman CM Assist.
--- NOTE | 2021-07-30 15:41 | ST.IPCSEOM ---
Visit Care Team Role Provider Type Temo Aguilar MD Family Provider Physician Primary Care Provider Specialty: Family Practice Address: [address] [facility], [address], [place], [address] Email: Charleen Fish MD Emergency Provider Physician Referring Provider Specialty: Emergency Medicine Address: [address] [place] [address], [id number] Email: Kayleigh Bueno MD Admit Provider Physician Attending Provider Specialty: Internal Medicine Address: [address] [place] [address], [id number] Email: [email or web address] Current Diagnoses Pneumonitis due to inhalation of food and vomit (07/29/21) Dysphagia, unspecified (07/29/21) Past Medical History (Last Updated 07/29/21 @ 22:17 by Kayleigh Bueno MD) Aspiration pneumonia (Medical) Dysphagia (Medical) Esophageal cancer (Medical) Thyroid cancer (Medical) Speech-Language Pathology Swallow Evaluation OLIVE GROWER Clinical Swallow Evaluation Start: 07/30/21 12:21 Freq: Status: Active Protocol: Document 07/30/21 12:21 [email or web address] (Rec: 07/30/21 12:46 ZS [id number]) Clinical Swallow Evaluation Session Time Visit Start Time 11:30 Visit Stop Time 12:00 Total Visit Minutes 30 Setting Assessment Location Acute Care Visit Type Note Type Initial evaluation Next Note Type Next Note Type Treatment Note Patient Information Identification Type Name,Wristband History Per H&P: 81 y/o male with a history of esophageal/thyroid cancer/throat cancer admitted for inability to eat, frequent vomiting, and failure to thrive. The patient reports for the last 6-9 days he has been unable to eat or keep anything down. He has tried some ensure, smoothies with little success. Patient was told by the [facility] there was no further surgery/treatment available for him. He was referred to hospice but he dismissed them when they arrived. He became worried as he lost 5 pounds over the last few days. He has been weak, unable to walk and very dehydrated. His daughter from [place] was able to get him to drink some ensure and he was a little bit stronger. Patient also has multiple social issues involving his daughters /caregivers that need to be sorted out before he can return home. Patient asks that his daughter Marivel be his DPOA. He also wants to know what we can do for him to help him eat. He at times seems forgetful. He denies pain but notes he had some chest pain earlier, has chronic shortness of breath, nausea, vomiting, but no diarrhea. Patient underwent CT of the Chest/Abdomen and Pelvis that revealed progression of pulmonary masses and possibly a clot in the IVC . 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 After an indepth discussion the patient decided not to have a PEG tube placed for nutrition. He was discharged home with recommendations for diet and oral care. Subjective Observations Pt was seated upright in chair finishing with OT when OLIVE GROWER arrived. He presented with a raspy vocal quality and reported soreness in his right arm (rated as a 5/6 on a scale of 1-10) and lightheadedness. Pt added he feels tired and described it like I haven't slept in 4 days . Reported by Patient Pain Intensity 6 Pain Scale Used Numeric (0 - 10) Location Other Other Symptoms Coughing,Food gets stuck Comment Pt reported sharp pain, like a knife, across his neck when he swallows large bites of food, though reported this decreases with smaller bites. He added he feels like something is growing in his throat and stated it feels like he swallows past a lump in his throat. The pt stated the pain decreases his desire to eat. NSG reported arm soreness is likely due to potassium and added he was coughing with liquids more yesterday, but they have noticed reduced coughing today. Current Diet Thin liquids Baseline Feeding Method Needs some assistance Results The pt is currently on an all liquid diet and has been enjoying the chocolate ensure drinks. Objective Assessment Mental Status Alert,Responsive,Cooperative Oral Integrity WFL Dentition Within normal limits Lip Function Mild impairment Observation of Lips at Rest Symmetrical Pucker Reduced range of motion, Reduced strength Lip Retraction Within normal limits Alternating Pucker/Lip Retraction Reduced range of motion Tongue Function Mild impairment Observations of Tongue at Rest Within normal limits Tongue Protrusion Reduced range of motion Tongue Retraction Within normal limits Tongue Lateralization Reduced range of motion Jaw Function Within normal limits Observations of Jaw at Rest Within normal limits Jaw Opening Within normal limits Jaw Closing Within normal limits Hard/Soft Palate Function Within normal limits Observations of Hard/Soft Palate Within normal limits Food and Liquid Trials Position During Assessment Upright (90 degrees),In chair Liquids Trialed Ice chips,Thin,Elim Solids Trialed Puree Administration Type Tea spoon,Cup single sip,Straw ,Needs some assistance Oral Impairment Within normal limits Oral Phase Comments Pt exhibited limited oral residue, good a/p propulsion, and no anterior loss of bolus. Multiple swallows observed to get food down, though unclear if this was oral or pharyngeal phase. Pharyngeal Impairment Severely impaired Pharyngeal Phase Comments Pt exhibited wet/gurgly vocal quality following all PO trials and coughed following nectar thick and pudding textures. Cough following pudding produced a teaspoon quantity of pudding, which pt spit out. Pt is likely silently aspirating, though a modified barium swallow study would be required to confirm this. Comment Unable to determine due to limited trials. Results The pt presents with severe pharyngeal phase dysphagia characterized by impaired airway protection. He is likely silently aspirating, though a modified barium swallow study would be required to confirm this. Recommend NPO diet until MBSS is completed. An MBSS was recommended initially, though recommendation was cancelled after consultation with additional OLIVE GROWER, due to pt's inability to protect his airway. Pt has had multiple surgeries on his neck and has bilateral paralysis of his vocal folds, both of which negatively impact his swallow safety. See additional OLIVE GROWER note for more details. Findings Swallowing Function Pharyngeal phase dysphagia Severity of Swallow Impairment Severely impaired Contributing Factors to Swallow Impaired airway protection, Impairment Excessive pharyngeal residue Prognosis Poor Based on Age,Comorbidities,Duration of symptoms/severity Impact on Safety and Functioning Risk for aspiration,Risk for inadequate nutrition/hydration Recommendations Instrumental Assessment Yes Recommended Solids Nothing by Mouth Recommended Liquids Nothing by Mouth Medication Recommendations Not Recommended by Mouth Discharge Recommendations Other (comment) Comments Hospice in a facility Education Patient/Caregiver Education Described results of evaluation,Patient expressed understanding of evaluation, Patient expressed understanding of safety precautions,Patient expressed understanding of feeding recommendations
--- NOTE | 2021-07-30 15:56 | PM.PN.1 ---
Subjective Subjective Interval history: The patient reports a return of his appetite this morning. He is adamantly requesting to be discharged home. He is awake, alert, and oriented to person, place and situation with good insight into his condition, along with its associated poor prognosis. He reports being amenable to enrolling in hospice at some point but declines wanting to enroll now. Exam Vital Signs (past 8 hours): - 07/30/21 08:10 07/30/21 10:00 07/30/21 12:59 Temperature 97.1 F L 98 F Pulse Rate 65 65 Respiratory Rate 19 19 Blood Pressure 114/59 L 102/57 L Pulse Oximetry 98 95 98 Oxygen Delivery Method Nasal Cannula Oxygen Flow Rate 2 Const Other: Patient sitting up in chair comfortably upon my entering the room, in no apparent acute distress. He appears emaciated. HENMT Other: Hoarse voice appreciated. Eyes Other: No scleral icterus appreciated. Neck Other: Multiple well-healed surgical scars appreciated to anterior neck. Resp Other: Poor air exchange bilaterally, with scattered rhonchi. Cardio Other: RRR. S1 and S2 heart sounds normal. No extra heart sounds or murmurs appreciated. GI Other: Soft, non-distended, non-tender. Bowel sounds present. Skin Other: No grossly abnormal skin lesions noted. Objective Labs Result Diagrams: 07/30/21 05:04 07/30/21 05:04 Labs: Laboratory Results - last 24 hr 07/29/21 07/29/21 07/29/21 18:10 18:20 18:20 WBC 19.7 H RBC 4.26 L Hgb 13.2 L Hct 40.5 L MCV 95.0 MCH 31.0 MCHC 32.7 RDW 15.4 H Plt Count 350 Neut % (Auto) 95.0 H Lymph % (Auto) 1.9 L [place] % (Auto) 2.5 L Eos % (Auto) 0.0 L Baso % (Auto) 0.6 Neut # (Auto) 43512 H Lymph # (Auto) 400 L [place] # (Auto) 500 Eos # (Auto) 0 Baso # (Auto) 100 Sodium 142 Potassium 4.3 Chloride 106 Carbon Dioxide 26 BUN 38 H Creatinine 1.08 Estimated GFR > 60.0 BUN/Creatinine Ratio 35.2 H Glucose 121 H Lactate Calcium 9.8 Total Bilirubin 1.2 AST 25 ALT 15 Alkaline Phosphatase 72 Total Protein 7.7 Albumin 4.4 Globulin 3.3 Albumin/Globulin Ratio 1.3 Urine Color Urine Appearance Urine pH Ur Specific [place] Urine Protein Urine Glucose (UA) Urine Ketones Urine Occult Blood Urine Nitrate Urine Bilirubin Ur Bilirubin Confirm Urine Urobilinogen Ur Leukocyte Esterase Urine RBC Urine WBC Ur Squamous Epith Cells Urine Bacteria Urine Mucus Ur Culture Indicated? Micro UA Comment SARS-CoV-2 (PCR) Negative 07/29/21 07/29/21 07/29/21 18:20 18:20 18:20 WBC Cancelled RBC Cancelled Hgb Cancelled Hct Cancelled MCV Cancelled MCH Cancelled MCHC Cancelled RDW Cancelled Plt Count Cancelled Neut % (Auto) Cancelled Lymph % (Auto) Cancelled [place] % (Auto) Cancelled Eos % (Auto) Cancelled Baso % (Auto) Cancelled Neut # (Auto) Cancelled Lymph # (Auto) Cancelled [place] # (Auto) Cancelled Eos # (Auto) Cancelled Baso # (Auto) Cancelled Sodium Cancelled Potassium Cancelled Chloride Cancelled Carbon Dioxide Cancelled BUN Cancelled Creatinine Cancelled Estimated GFR Cancelled BUN/Creatinine Ratio Cancelled Glucose Cancelled Lactate 2.6 H Calcium Cancelled Total Bilirubin Cancelled AST Cancelled ALT Cancelled Alkaline Phosphatase Cancelled Total Protein Cancelled Albumin Cancelled Globulin Cancelled Albumin/Globulin Ratio Cancelled Urine Color Urine Appearance Urine pH Ur Specific [place] Urine Protein Urine Glucose (UA) Urine Ketones Urine Occult Blood Urine Nitrate Urine Bilirubin Ur Bilirubin Confirm Urine Urobilinogen Ur Leukocyte Esterase Urine RBC Urine WBC Ur Squamous Epith Cells Urine Bacteria Urine Mucus Ur Culture Indicated? Micro UA Comment SARS-CoV-2 (PCR) 07/29/21 07/29/21 07/30/21 20:43 21:00 05:04 WBC 11.6 H RBC 3.34 L Hgb 10.6 L Hct 31.7 L MCV 95.0 MCH 31.7 MCHC 33.4 RDW 15.5 H Plt Count 271 Neut % (Auto) 89.7 H Lymph % (Auto) 6.5 L [place] % (Auto) 3.3 Eos % (Auto) 0.2 L Baso % (Auto) 0.3 Neut # (Auto) 60960 H Lymph # (Auto) 800 L [place] # (Auto) 400 Eos # (Auto) 0 Baso # (Auto) 0 Sodium Potassium Chloride Carbon Dioxide BUN Creatinine Estimated GFR BUN/Creatinine Ratio Glucose Lactate 1.8 Calcium Total Bilirubin AST ALT Alkaline Phosphatase Total Protein Albumin Globulin Albumin/Globulin Ratio Urine Color Yellow Urine Appearance Clear Urine pH 5.0 Ur Specific [place] >=1.030 H Urine Protein 1+ H Urine Glucose (UA) Trace H Urine Ketones 1+ H Urine Occult Blood Trace-intact Urine Nitrate Negative Urine Bilirubin 1+ H Ur Bilirubin Confirm Negative Urine Urobilinogen 0.2 Ur Leukocyte Esterase Negative Urine RBC 5-10/hpf H Urine WBC 1-5/hpf Ur Squamous Epith Cells 0-1 /hpf Urine Bacteria Occasional (0-1) Urine Mucus 1+ H Ur Culture Indicated? Cult not indicated Micro UA Comment Few oval fat bodies SARS-CoV-2 (PCR) 07/30/21 05:04 WBC RBC Hgb Hct MCV MCH MCHC RDW Plt Count Neut % (Auto) Lymph % (Auto) [place] % (Auto) Eos % (Auto) Baso % (Auto) Neut # (Auto) Lymph # (Auto) [place] # (Auto) Eos # (Auto) Baso # (Auto) Sodium 140 Potassium 3.5 Chloride 111 H Carbon Dioxide 24 BUN 32 H Creatinine 0.97 Estimated GFR > 60.0 BUN/Creatinine Ratio 33.0 H Glucose 154 H Lactate Calcium 8.2 L Total Bilirubin AST ALT Alkaline Phosphatase Total Protein Albumin Globulin Albumin/Globulin Ratio Urine Color Urine Appearance Urine pH Ur Specific [place] Urine Protein Urine Glucose (UA) Urine Ketones Urine Occult Blood Urine Nitrate Urine Bilirubin Ur Bilirubin Confirm Urine Urobilinogen Ur Leukocyte Esterase Urine RBC Urine WBC Ur Squamous Epith Cells Urine Bacteria Urine Mucus Ur Culture Indicated? Micro UA Comment SARS-CoV-2 (PCR) [facility] Medical History (Updated 07/29/21 @ 22:17 by Kayleigh Bueno MD) Aspiration pneumonia Dysphagia Esophageal cancer Thyroid cancer Family History (Updated 07/29/21 @ 22:18 by Kayleigh Bueno MD) Mother Natural with unknown cause Social History household members: family Smoking Status: Former smoker Assessment & Plan Assessment & Plan narrative: 81 y/o male with a history of thyroid cancer, chronic dysphagia, inability to eat, vomiting, likely aspiration pneumonia with acute severe protein calorie malnutrition. 1. Thyroid cancer, with likely metastases to lungs/liver, worsening - Patient has been informed by his physicians that the cancer is now inoperable? - Extensively discussed with the patient and his daughters that prognosis is poor, and patient is a good hospice candidate - Patient voiced needing time to think about enrolling in hospice 2. Pneumonia, likely aspiration, improving - IV Zosyn on-board and will switch to PO levofloxacin 750 mg daily on discharge, to complete a total of 7 days 3. Severe protein-calorie malnutrition, ongoing - This is likely being driven by his underlying cancer, along with very low appetite due to cancer - Patient decline PEG tube insertion, wanting to take-in PO, although he's aware of the aspiration risk 4. Vocal cord paralysis - Likely due to multiple neck surgeries, as diagnosed at the [facility] 5. Hypothyroidism, post-surgical - Will continue home levothyroxine 150 mcg daily Code: DNR/DNI I have utilized all available immediate resources to reconcile the patient's medications. Time Spent With Patient Critical Care time: I spent a total of [] minutes of critical care time on this patient's care today; this time is exclusive of procedural time. Quality MIPS - Admit I confirm the patient?s Advance Care Plan is present, Code status is documented, Surrogate decision maker is in patient?s record [If Yes, STOP here]: Yes
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
--- NOTE | 2021-07-30 17:40 | PC.NURSE ---
Day shift- Pt left unit at 1735 via WC w/me nurse. Pt and daughter, who is primary physician assistant primary care, were given DC info and verbalized understanding of antibiotic use for pnuemonia and disease process of aspiration pneumonia. Pt had all belongings. Pt left w/ release form and it was not signed by accident.
--- NOTE | 2021-07-31 07:11 | P.DS_ITS ---
History of Present Illness History of Present Illness Chief complaint: LOSS OF WEIGHT STAGE 4 CANCER UNABLE TO GET ANYTHI Narrative: 81 y/o male with a history of esophageal/thyroid cancer/throat cancer admitted f or inability to eat, frequent vomitting, and failure to thrive. The patient reports for the last 6-9 days he has been unable to eat or keep anything down. He has tried some ensure, smoothies with little success. Patient was told by the [facility] there was no further surgery/treatment available for him. He was referred to hospice but he dismissed them when they arrived. He became worried as he lost 5 pounds over the last few days. He has been weak, unable to walk and very dehydrated. His daughter from [place] was able to get him to drink some ensure and he was a little bit stronger. Patient also has multiple social issues involving his daughters /caregivers that need to be sor zuhair out before he can return home.? Patient asks that his daughter Marivel be his DPOA. He also wants to know what we can do for him to help him eat. He at times seems forgetful. He denies pain but notes he had some chest pain earlier, has chronic shortness of breath, nausea, vomiting, but no diarrhea. Patient underwent CT of the Chest/Abdomen and Pelvis that revealed progression of pulmonary masses and possibly a clot in the IVC . Patient is admitted for further evaluation. Written by the admitting provider. Discharge Providers Provider Date of admission: 07/29/21 21:21 Discharge Date: 07/30/21 Primary care physician: Temo Aguilar MD Consults: 07/29/21 18:14 Consult to UMBRELLA SUPERVISOR - Ct Tech Stat Comment: 07/29/21 21:35 Consult to Dietitian, Adult Routine Comment: severe protein calorie malnutrtion Reason For Exam: esophageal cancer Consult to Discharge Planning Routine Comment: Consult to Occupational Therapy Evaluate & Treat Comment: Physician Instructions: Evaluate and treat Consult to Physical Therapy Evaluate & Treat Comment: Physician Instructions: Evaluate and Treat 07/30/21 10:20 Consult to Speech Therapy Evaluate & Treat Comment: Physician Instructions: Evaluate and treat Discharge provider: Yelitza Lopez MD Summary Hospital Course Discharge Diagnosis: 81 y/o male with a history of thyroid cancer, chronic dysphagia, inability to eat, vomiting, likely aspiration pneumonia with acute severe protein calorie malnutrition. 1. Thyroid cancer, with likely metastases to lungs/liver, worsening - Patient has been informed by his physicians that the cancer is now inoperable? - Extensively discussed with the patient and his daughters that prognosis is poor, and patient is a good hospice candidate - Patient voiced needing time to think about enrolling in hospice 2. Pneumonia, likely aspiration, improving - IV Zosyn on-board and will switch to PO levofloxacin 750 mg daily on discharge, to complete a total of 7 days 3. Severe protein-calorie malnutrition, ongoing - This is likely being driven by his underlying cancer, along with very low appetite due to cancer - Patient decline PEG tube insertion, wanting to take-in PO, although he's aware of the aspiration risk 4. Vocal cord paralysis - Likely due to multiple neck surgeries, as diagnosed at the [facility] 5. Hypothyroidism, post-surgical - Will continue home levothyroxine 150 mcg daily Exam Vital Signs (past 8 hours): Oxygen Delivery Method Nasal Cannula Oxygen Flow Rate 2 Objective Labs Result Diagrams: 07/30/21 05:04 07/30/21 05:04 [facility] Medical History (Updated 07/29/21 @ 22:17 by Kayleigh Bueno MD) Aspiration pneumonia Dysphagia Esophageal cancer Thyroid cancer Family History (Updated 07/29/21 @ 22:18 by Kayleigh Bueno MD) Mother Natural with unknown cause Social History household members: family Smoking Status: Former smoker Discharge Assessment & Plan Assessment and Plan Assessment: 81 y/o male with a history of thyroid cancer, chronic dysphagia, inability to eat, vomiting, likely aspiration pneumonia with acute severe protein calorie malnutrition. 1. Thyroid cancer, with likely metastases to lungs/liver, worsening - Patient has been informed by his physicians that the cancer is now inoperable? - Extensively discussed with the patient and his daughters that prognosis is poor, and patient is a good hospice candidate - Patient voiced needing time to think about enrolling in hospice 2. Pneumonia, likely aspiration, improving - IV Zosyn on-board and will switch to PO levofloxacin 750 mg daily on discharge, to complete a total of 7 days 3. Severe protein-calorie malnutrition, ongoing - This is likely being driven by his underlying cancer, along with very low appetite due to cancer - Patient decline PEG tube insertion, wanting to take-in PO, although he's aware of the aspiration risk 4. Vocal cord paralysis - Likely due to multiple neck surgeries, as diagnosed at the [facility] 5. Hypothyroidism, post-surgical - Will continue home levothyroxine 150 mcg daily Discharge Plan Discharge Plan Patient Disposition: Home Discharge orders & Medications Prescriptions: New levofloxacin 750 mg tablet 750 mg PO DAILY 6 Days Qty: 6 0RF Continued levothyroxine [Synthroid] 150 MCG tablet 150 mcg OR Q DAY Qty: 0 0RF Follow up/Referrals: Temo Aguilar MD [Primary Care Provider] - Visit Report/Discharge Packet Instructions: Aspiration Pneumonia, How to Use Antibiotics Wisely Discharge Data Primary Care Provider: Temo Aguilar
[2021-07-31 07:49] LABS: Acinetobacter baumannii Not Detected (Not Detect); E. coli Not Detected (Not Detect); Enterobacter cloacae complex Not Detected (Not Detect); Enterobacteriaceae species Not Detected (Not Detect); Enterococcus species Not Detected (Not Detect); Haemophilus influenzae Not Detected (Not Detect); Listeria monocytogenes Not Detected (Not Detect); Neisseria meningitidis Not Detected (Not Detect); Proteus species Not Detected (Not Detect); Serratia marcescens Not Detected (Not Detect); Staphylococcus species Not Detected (Not Detect); Streptococcus agalactiae (Gr B Not Detected (Not Detect); Streptococcus pneumonia Not Detected (Not Detect); Streptococcus pyogenes (Gr A) Not Detected (Not Detect); Streptococcus species Not Detected (Not Detect)
[2021-07-31 07:50] LABS: Candida albicans Not Detected (Not Detect); Candida glabrata Not Detected (Not Detect); Candida krusei Not Detected (Not Detect); Candida parapsilosis Not Detected (Not Detect); Candida tropicalis Not Detected (Not Detect); Pseudomonas aeruginosa Not Detected (Not Detect)
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
== END 2021-07-30 17:43 | disposition home or self-care (01) | DRG 177 ==
LOC: ED 21:07 → AC 21:22
PROVIDERS: Admitting Provider Internal Medicine; Emergency Provider Emergency Medicine; Family Provider Family Medicine; PCP Family Medicine; Referring Provider Emergency Medicine; Visit Provider Internal Medicine
DX: J69.0 Pneumonitis due to inhalation of food and vomit (principal); J96.01 Acute respiratory failure with hypoxia; E43 Unspecified severe protein-calorie malnutrition; Z68.1 Body mass index [BMI] 19.9 or less, adult; C78.02 Secondary malignant neoplasm of left lung; C78.01 Secondary malignant neoplasm of right lung; E86.0 Dehydration; J38.00 Paralysis of vocal cords and larynx, unspecified; R13.10 Dysphagia, unspecified; C73 Malignant neoplasm of thyroid gland; E89.0 Postprocedural hypothyroidism; I49.3 Ventricular premature depolarization; Z87.891 Personal history of nicotine dependence; Z66 Do not resuscitate; Z20.822 Contact with and (suspected) exposure to COVID-19
CPT/HCPCS: 36415; 71045; 71260; 74177; 80048; 80053; 81001; 82962; 83605; 85025; 87040; 87077; 87150; 87205; 87635; 92610; 93005; 94618; 94762; 96361; 96365; 97129; 97162; 97167; 97535; 99285; C9803; J1650; J2543; J7050; Q9967

== ENCOUNTER 2021-08-19 09:30 | Outpatient (RCR) | payer MEDICARE, SELFPAY ==
[2021-07-29 23:27] VITALS: BMI 12.9
--- NOTE | 2021-08-06 18:00 | ST.OPIE ---
Visit Care Team Role Provider Type Temo Aguilar MD Family Provider Physician Primary Care Provider Specialty: Family Practice Address: [address], [address], [place], [address] Email: Sean North MD Attending Provider Physician Referring Provider Specialty: Ear, Nose, Throat Address: [address] [place] [address], [address] Email: [email or web address] Speech-Language Pathology Initial Evaluation SOFTWARE ENGINEERING SUPERVISOR Clinical Swallow Evaluation Start: 08/06/21 15:28 Freq: Status: Active Protocol: Document 08/06/21 15:31 WILMER (Rec: 08/06/21 16:52 WILMER [email or web address]) Clinical Swallow Evaluation Session Time Visit Start Time 15:30 Visit Stop Time 16:50 Total Visit Minutes 80 Visit Information Visit Number Initial Evaluation 05/13 Plan of Care Dates 08/06/21 - 10/31/21 Insurance Information Medicare Referral Referring Provider Dr. 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 This has been treated with 5 surgeries around the neck area since the 1980s (the last in 2006) and is now no longer operable. The pt has had no radiation treatment. 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 He underwent right posterior cordotomy at [facility] on 05/14/21 to reduce airway obstruction and increase ability to breathe, which he reports has been helpful. During hospitalization for this procedure, G-tube feeding was recommended, but the pt refused. On 07/29/21 the pt was admitted to d/t difficulty eating and frequent vomiting. He was diagnosed with PNA, likely aspiration, and severe protein-calorie malnutrition. Referral to Dietitian was made at that time, although the pt and his daughter, Crystal, who attended with him today, report they have not seen a dietitian/ alligator hunter. The pt reported his weight today as 101 lbs. He mostly consumes thin and nectar- thick liquids and occasional pureed foods. His dtr reported he is always coughing with oral intake. The pt adamantly states that he does not want tube feeding, although there appears to be some misunderstanding of the procedure, as the pt believes it involves an incision from the sternum to stomach. Subjective Observations The pt arrived on time accompanied by his dtr, Crystal, who was present throughout the evaluation. Both pt and dtr provided case history supplemental to medical records. They denied having been seen by a Asphalt Mixer/ Insurance Claims Analyst and requested referral. The pt consumes ~3 Ensures daily and expressed being tired of only consuming liquids; however, other foods such as eggs get stuck and induce coughing. The pt also c/o sticking sensation at sternum level with oral intake. Reported by Patient Other Symptoms Choking,Coughing,Difficulty swallowing liquids,Difficulty swallowing pills,Difficulty swallowing solids,Food gets stuck,History of aspiration or pneumonia,Weight loss Current Diet Pureed,Thin liquids Baseline Feeding Method Independent in self-feeding Patient Questionnaire No Objective Assessment Mental Status Alert,Responsive,Cooperative, Confused Oral Integrity WFL Dentition Missing teeth Lip Function Within normal limits Observation of Lips at Rest Symmetrical Pucker Within normal limits Lip Retraction Within normal limits Alternating Pucker/Lip Retraction Within normal limits Tongue Function Mild impairment Observations of Tongue at Rest Within normal limits Tongue Protrusion Within normal limits Tongue Lateralization Reduced strength Jaw Function Within normal limits Observations of Jaw at Rest Within normal limits Jaw Opening Within normal limits Jaw Closing Within normal limits Jaw Lateralization Reduced range of motion Hard/Soft Palate Function Within normal limits Observations of Hard/Soft Palate Within normal limits Gag Reflex Within normal limits Phonation Breathy Respiratory Sufficiency Within normal limits Comment The pt speaks in whispers secondary to VF paralysis. This also weakens his cough. Additionally, he is hard of hearing and benefited from increased loudness and use of clear face shield to allow for lip reading. He frequently repeated himself, both in comments and questions, indicating memory loss. Because of these additional impairments, it will be important for all important information to be presented in writing and for the pt to be accompanied by a family member /caregiver to assist with decision making and carryover of treatment and recommendations in his home setting. Food and Liquid Trials Position During Assessment Upright (90 degrees) Liquids Trialed Thin,[place] Solids Trialed Puree Administration Type Tea spoon,Controlled cup sip, Self-feeding Oral Impairment Within functional limits Oral Phase Comments Reduced hyolaryngeal elevation and anterior excursion observed via palpation during swallow. Pt was unable to produce volitional swallow d/t dry mouth. Pharyngeal Impairment Severely impaired Pharyngeal Phase Comments Multiple swallows (3-6) were required per bolus, both liquid and solid. The pt denied pain with swallow. He exhibited throat clearing and mild cough with initial trials increasing to consistent, coughing increasing in strength with subsequent trials. Cough was breathy secondary to VF paralysis and cordotomy effects. As trials continued, the pt reported frequent re-entry of bolus from the esophagus to the pharynx. Trials were discontinued for pt safety. His dtr reported, This is how it is every time he eats or drinks anything. Fatigue/Endurance Mild fatigue Strategies Attempted Chin tuck,Effortful swallow Response/Comments Pt reported mildly increased comfort with chin tuck. He naturally produced effortful swallow. No improvement in airway protection was observed. Findings Swallowing Function Pharyngoesophageal phase dysphagia Swallowing Function Comments Suspect proximal esophageal narrowing and retrograde flow to pharynx Severity of Swallow Impairment Severely impaired Contributing Factors to Swallow Difficulty following Impairment directions,Reduced laryngeal excursion,Impaired airway protection,Excessive pharyngeal residue Prognosis Guarded Based on Cognitive status,Age,History of aspiration/aspiration pneumonia,Comorbidities, Duration of symptoms/severity Comment The pt presents with severe pharyngeal and suspected esophageal dysphagia secondary to thyroid cancer, likely impacted by scar tissue from multiple surgeries. He is at very high risk of aspiration. Given reflux of swallowed boluses from esophagus to pharynx post swallow, esophageal stenosis is suspected. Modified Barium Swallow Study (MBSS) is recommended for more thorough evaluation, to provide detailed education to the pt and his family for decision making, and to guide POC. MBSS to include screening of the esophagus to determine if referral to GI is warranted. The pt strongly states an unwillingness to have tube feeding, although he appears to not have accurate information necessary to make an educated decision. He was agreeable to receiving additional information about NG- vs PEG-tube feeding, including ongoing risk of aspiration with tube feeding and the potential for continued pleasure feeding. The pt has had one recent hospitalization d/t malnutrition and likely aspiration pneumonia. His dtr reported this occurred at a time when the pt was not living with her and was under the supervision of another family member who was unaccustomed to the pt's needs. The pt is now living again with dtr Crystal, who closely monitors his intake, weight, and diet. Under these conditions, it is recommended the pt continue current diet, which is mostly NTL and pureed solids. Recommended frequent breaks between bites/sips, particularly if the pt feels sticking sensation at his chest level. Both he and dtr verbalized understanding and agreement. The pt was agreeable to MBSS, and both pt /dtr requested referral to Asphalt Mixer. Impact on Safety and Functioning Risk for aspiration,Risk for inadequate nutrition/hydration Recommendations Instrumental Assessment Yes Swallowing Treatment Yes Frequency 1x/wk for 5 wks, taper thereafter as indicated Duration 2-3 mos Recommended Solids Puree Recommended Liquids [place] Other Recommendations The pt is at high risk of aspiration. Alternative nutrition is likely the safest manner of intake; however, the pt refuses. Therefore, the above recommendations are deemed safest for oral intake pending MBSS results. Safety Precautions/Swallowing 1 to 1 close supervision,Feed Recommendations only when alert,Reduce distractions,Remain upright ( 90 degrees) during all oral intake,Needs verbal cues to use recommended strategies, Upright position at least 30 minutes after meals,Small bites and sips when eating, Slow rate; swallow between bites,Multiple swallows, Alternate liquids and solids Medication Recommendations Crushed in Carrier Referrals Recommended Referrals Dietary Education Patient/Caregiver Education Described results of evaluation,Patient expressed understanding of evaluation, Patient expressed agreement with goals & treatment plans, Family/caregivers expressed understanding of evaluation, Family/caregivers expressed agreement with goals & treatment plans,Patient expressed understanding of safety precautions,Patient expressed understanding of feeding recommendations,Family /caregivers expressed understanding of safety precautions,Family/caregivers expressed understanding of feeding recommendations, Patient requires further education/training,Family/ caregivers require further education/training Goals Short-term Goals 1. The pt will participate in MBSS for further evaluation of swallow function/safety and to guide POC. 2. The pt will follow safe swallow strategies with prompting as needed to reduce risk of aspiration and promote adequate nutrition/hydration. Long-term Goals 1. The pt will tolerate least restrictive diet to meet his nutrition and hydration needs.
--- NOTE | 2021-08-19 13:10 | ST.IPDYTX ---
Visit Care Team Role Provider Type Temo Aguilar MD Family Provider Physician Primary Care Provider Specialty: Family Practice Address: [address], [address], [place], [address] Email: Sean North MD Attending Provider Physician Referring Provider Specialty: Ear, Nose, Throat Address: [address] [place] [address], [id number] Email: [email or web address] BOAT MECHANIC Dysphagia Treatment BOAT MECHANIC Dysphagia Treatment Start: 08/19/21 10:21 Freq: Status: Active Protocol: Document 08/19/21 10:22 WILMER (Rec: 08/19/21 10:30 WILMER [id number]) Dysphagia Treatment Session Time Visit Start Time 09:30 Visit Stop Time 10:20 Total Visit Minutes 50 Visit Information Visit Number 06/13 Plan of Care Dates 08/06/21 - 10/31/21 Insurance Information Medicare Setting Assessment Location Outpatient Care Visit Type Note Type Treatment Note Next Note Type Next Note Type Treatment Note Patient Information Subjective Observations The pt arrived on time accompanied by his son, Dominick, who was present throughout. The son stated, I don't know much about the situation. I was just asked to bring him to the appointment. Throughout the session, the pt repeatedly denied swallow difficulty, stating it is much better than it was. He also frequently repeated himself, both in comments and questions, indicating significant working and short- term memory deficits. This BOAT MECHANIC has collaborated with Jennifer Lepe, Clinical Orthodontic Lab Technician, who is attempting to connect with the pt/family for assessment, as per our agreement at last session. The pt did not recall discussions of this at our last session and expressed doubt at his need for this service. Treatment Treatment Activities No oral trials were administered today. Education was provided RE NG vs PEG tube feeding, both orally and in writing. The pt adamantly stated he did not want tube feeding. BOAT MECHANIC stated information was for educational purposes only so that the pt/family could be familiar with these terms, which will likely be used with other medical providers, and to be able to make an informed decision, whatever the pt wishes. Requested the written information be provided to the pt's daughter, Margie, and the pt agreed to do this. BOAT MECHANIC informed the request for MBS orders has been made and orders are pending. Pt did not recall discussions about MBS. Re-education was provided and the pt was agreeable to the MBS. BOAT MECHANIC suggested initiating exercises to try to improve swallow function/safety and educated that an exercise program would need to be followed daily. The pt did not show interest in this; he waved his hand in a dismissive gesture and looked at his son , who did not provide a response. The pt continued to deny he has a swallow problem, as long as he only consumes liquids or pureed foods in small amounts. Discussion of exercise was discontinued. Re-education was also provided RE the role of a Clinical Orthodontic Lab Technician and this BOAT MECHANIC's continued recommendation for such consultation. The pt stated he did not know what the good of that is. Agreed to follow up after MBS, and this plan was provided in writing to promote pt recall and to inform the pt's dtr who is his POA. The pt provided verbal permission for this BOAT MECHANIC to call his dtr, Margie, to inform her of today's discussions. Assessment Patient Response to Treatment Fair Rehab Potential Fair Assessment of Improvement The pt largely denies swallow difficulties, recognizing he is limited to liquids and pureed foods. He feels safe and that he is consuming adequate nutrition/hydration with current level of oral intake. He has not had clinical evidence of aspiration pneumonia since his last hospital visit. He continues to adamently refuse to consider tube feeding options and to be agreeable to MBS. Additionally, he is resistant to other interventions such as exercises to improve swallow function and safety and collaboration with a Clinical Orthodontic Lab Technician. Exercises will not be pursued, as the pt does not exhibit sufficient motivation to be effective. Referral to Clinical Orthodontic Lab Technician is still recommended for family education, if not for the pt directly. Will proceed with MBS for assessment purposes and decide thereafter next steps. Diet Recommendations Recommendations Continue Current Diet Liquids Order [place] Diet Order Dysphagia Blenderized Medication Recommendations Crushed in Carrier Aspiration Precautions Recommended Precautions Upright at 90 Degrees,Frequent Rest Periods,Small Bites/Sips ,Effortful Swallow,Double Swallow Treatment Plan Appropriate for Continued Therapy Yes Therapy Recommendations Obtain further assessment via MBS. Dysphagia Goals 1. The pt will participate in MBSS for further evaluation of swallow function/safety and to guide POC. 2. The pt will follow safe swallow strategies with prompting as needed to reduce risk of aspiration and promote adequate nutrition/hydration. 3. The pt will tolerate least restrictive diet to meet his nutrition and hydration needs. Referrals/Other Recommended Referrals Dietary Consult
--- NOTE | 2021-08-20 15:17 | ST.IPDYTX ---
Visit Care Team Role Provider Type Temo Aguilar MD Family Provider Physician Primary Care Provider Specialty: Family Practice Address: [address], [address], [place], [address] Email: Sean North MD Attending Provider Physician Referring Provider Specialty: Ear, Nose, Throat Address: [address] [place] [address], [address] Email: [email or web address] CAN FILLER Dysphagia Treatment CAN FILLER Dysphagia Treatment Start: 08/19/21 10:21 Freq: Status: Active Protocol: Document 08/20/21 15:13 WILMER (Rec: 08/21/21 15:17 WILMER [id number]) Dysphagia Treatment Visit Information Plan of Care Dates 08/06/21 - 10/31/21 Insurance Information Medicare Setting Assessment Location Outpatient Care Visit Type Note Type Discharge Summary Patient Information Subjective Observations The pt's daughter, Crystal, left a phone message for the CAN FILLER informing that the pt is refusing further interventions , including MBS, outpatient dysphagia therapy, and consultation with a Clinical Bindery Chief. He is choosing not to want to get that help. This CAN FILLER called Crystal back and left a message of acknowledgment on her vm. The pt will be discharged from skilled intervention at this time. Treatment Plan Appropriate for Continued Therapy No: Discharge per pt request
== END 2021-08-22 08:43 ==
LOC: SP 09:30
PROVIDERS: Family Provider Family Medicine; PCP Family Medicine; Referring Provider Otolaryngology; Visit Provider Otolaryngology
DX: R13.19 Other dysphagia (principal); J38.02 Paralysis of vocal cords and larynx, bilateral; J98.8 Other specified respiratory disorders
CPT/HCPCS: 92526; 92610